=== PATIENT | female | born 1930 | race Caucasian/White ===

== ENCOUNTER 2016-12-11 23:45 | Emergency (ER) | payer MEDICARE, OTHER ==
[2016-12-12] MEDS ORDERED: HYDROcod/ACET 5/325 Prepack 6 PO ONE ×2 (00:09→00:14)
[2016-12-12] MEDS ORDERED: HYDROcod/ACETAM 5/325 MG TABLET PO STA (00:09)
[2016-12-12] MEDS ORDERED: HYDROcod/ACETAM 5/325 MG TABLET ONE (00:14)
[2016-12-12] MEDS ORDERED: HYDROmorphone 1 MG/ML SYRINGE IM STA (00:43)
[2016-12-12] MEDS ORDERED: HYDROmorphone 1 MG/ML SYRINGE ONE (00:44)
== END 2016-12-12 00:43 | disposition home or self-care (01) ==
DX: S46.001A Unspecified injury of muscle(s) and tendon(s) of the rotator cuff of right shoulder, initial encounter (principal); I10 Essential (primary) hypertension; I48.92 Unspecified atrial flutter; E11.9 Type 2 diabetes mellitus without complications; G89.29 Other chronic pain; M54.9 Dorsalgia, unspecified; Z96.659 Presence of unspecified artificial knee joint; Z79.891 Long term (current) use of opiate analgesic; Z79.899 Other long term (current) drug therapy
CPT/HCPCS: 73030; 96372; 99283; 99284; A9270; J1170

== ENCOUNTER 2017-01-28 16:22 | Outpatient (CLI) | payer MEDICARE, OTHER ==
--- NOTE | 2017-01-28 17:24 | CT Report ---
EXAM: CT HEAD EXAM DATE: 01/28/2017 04:44 PM. CLINICAL HISTORY: Acute unsteadiness COMPARISON: Head CT 05/07/2015. TECHNIQUE: Multiaxial CT images were obtained from the foramen magnum to the vertex. IV contrast: Non e. Reformats: Coronal. In accordance with CT protocol optimization, one or more of the following dose reduction techniques w ere utilized for this exam: automated exposure control, adjustment of mA and/or KV based on patient s ize, or use of iterative reconstructive technique. FINDINGS: Parenchyma: No intracranial bleed or mass effect. Moderate low density within the deep white matter. Extraaxial Spaces: Normal for age. No subdural or epidural collections identified. Ventricles: Normal in size and position. Sinuses: Imaged paranasal sinuses, orbits, and mastoids show no significant abnormality. Bones: No evidence of fracture or calvarial defect. Other: Atherosclerosis. IMPRESSION: 1. No intracranial bleed or mass effect. 2. Moderate nonspecific white matter disease, likely microangiopathy. RAD[facility] The call report notification system was initiated by Dr. Kev Crump at 17:13 hrs on 01/28/17. The above findings were discussed with Dr. Cowart by Dr. Kev Crump at 17:20 hrs on 01/28/17. Referring Provider Line: [phone] SITE ID: [id number]
== END 2017-01-28 16:23 | disposition home or self-care (01) ==
LOC: DI 16:22
PROVIDERS: ATTEND Internal Medicine
DX: R26.9 Unspecified abnormalities of gait and mobility (principal); R26.81 Unsteadiness on feet; R90.82 White matter disease, unspecified
CPT/HCPCS: 70450

== ENCOUNTER 2017-05-17 10:10 | Outpatient (CLI) | payer MEDICARE, OTHER ==
[2017-05-17 18:53] LABS: BASOPHILS # (AUTO) 0.1 10^3/uL (0.0-0.1); BASOPHILS % (AUTO) 1.1 %; EOSINOPHILS # (AUTO) 0.1 10^3/uL (0.0-0.7); EOSINOPHILS % (AUTO) 2.4 %; HCT - HEMATOCRIT 41.8 % (37.0-47.0); HGB - HEMOGLOBIN 13.8 g/dL (12.0-16.0); LYMPHOCYTES # (AUTO) 1.3 10^3/uL (1.5-3.5); LYMPHOCYTES % (AUTO) 22.1 %; MEAN CORPUSCULAR HEMOGLOBIN 29.6 pg (27.0-31.0); MEAN CORPUSCULAR VOLUME 89.7 fL (81.0-99.0); MEAN PLATELET VOLUME 8.9 fL (7.9-10.8); MONOCYTES # (AUTO) 0.5 10^3/uL (0.0-1.0); MONOCYTES % (AUTO) 8.9 %; NEUTROPHILS # (AUTO) 3.9 10^3/uL (1.5-6.6); NEUTROPHILS % (AUTO) 65.5 %; NUCLEATED RED BLOOD CELLS AUTO 0.3 /100WBC; RED BLOOD COUNT 4.66 10^6/uL (4.20-5.40); RED CELL DISTRIBUTION WIDTH 15.2 % (12.0-15.0); UNCORRECTED WHITE BLOOD COUNT 5.9 x10^3/uL; WHITE BLOOD COUNT 5.9 x10^3/uL (4.8-10.8)
[2017-05-17 19:19] LABS: ALBUMIN/GLOBULIN RATIO 1.6 (1.0-2.2); BILIRUBIN,TOTAL 0.9 mg/dL (0.2-1.0); BUN - BLOOD UREA NITROGEN 15 mg/dL (6-20); CALCIUM 9.5 mg/dL (8.5-10.3); CARBON DIOXIDE - CO2 28 mmol/L (21-32); CHLORIDE 102 mmol/L (101-111); CHOL/HDL RATIO 4.1 (<4.4); CHOLESTEROL 207 mg/dL; CREATININE 0.6 mg/dL (0.4-1.0); GFR - MDRD 95 (>89); GLUCOSE 115 mg/dL (70-100); HDL CHOLESTEROL 50 mg/dL; LDL/HDL RATIO 2.2 (<4.4); SODIUM 139 mmol/L (135-145); TOTAL PROTEIN 7.2 g/dL (6.7-8.2); TRIGLYCERIDES 237 mg/dL; VLDL CHOLESTEROL 47 mg/dL
[2017-05-17 20:14] LABS: HEMOGLOBIN A1C 0.72 g/dL
== END 2017-05-17 10:11 | disposition home or self-care (01) ==
LOC: LAB.F 10:10
PROVIDERS: ATTEND Internal Medicine
DX: I26.99 Other pulmonary embolism without acute cor pulmonale (principal); E11.9 Type 2 diabetes mellitus without complications; E78.2 Mixed hyperlipidemia; M15.9 Polyosteoarthritis, unspecified; I48.0 Paroxysmal atrial fibrillation; Z79.899 Other long term (current) drug therapy
CPT/HCPCS: 36415; 80053; 80061; 83036; 84443; 85025

== ENCOUNTER 2017-06-22 06:13 | Day surgery (SDC) | payer MEDICARE, OTHER ==
[2017-06-22] MEDS ORDERED: LACTATED RINGERS 1,000 ML IV ONE (07:04)
[2017-06-22] MEDS ORDERED: LIDOCAINE 1%-EPI 1:100000 30 ML MDV SUBQ ONE ×2 (07:41)
[2017-06-22] MEDS ORDERED: BUPIVACAINE 0.25% PF 30 ML VIAL SUBQ ONE ×2 (07:41)
[2017-06-22] MEDS ORDERED: LIDOCAINE-MPF 2% 5 ML VIAL IM ONE (07:45)
[2017-06-22] MEDS ORDERED: fentaNYL 100 MCG/2 ML VIAL IVP ONE (07:45)
[2017-06-22] MEDS ORDERED: MIDAZOLAM 2 MG/2 ML VIAL IVP ONE (07:45)
[2017-06-22] MEDS ORDERED: PROPOFOL 200 MG/20 ML VIAL IVP ONE (07:45)
[2017-06-22 08:24] VITALS: BP 114/72
--- NOTE | 2017-06-22 10:10 | OPERATIVE REPORT ---
DATE OF SURGERY: 06/22/2017 00:00:00 PREOPERATIVE DIAGNOSIS: Right hand carpal tunnel syndrome. POSTOPERATIVE DIAGNOSIS: Right hand carpal tunnel syndrome. PROCEDURE: Right carpal tunnel release. OPERATING SURGEON: Carlos Jean MD ANESTHESIA: Local MAC. INDICATIONS FOR SURGERY: The patient is an 87-year-old female with progressive pain and numbness in h er right hand with positive findings of carpal tunnel syndrome both by clinical exam and nerve conduc tion studies. Recommendation is that she undergo carpal tunnel release. DESCRIPTION OF OPERATIVE PROCEDURE: The patient was taken to the operating room, was given conscious sedation and also an infiltrated block of 1% lidocaine with epinephrine and 0.25% Marcaine plain, sowmya roximately 8 mL total volume. Once this block was achieved in the carpal tunnel, the hand was sterile ly prepped and draped in standard fashion. A 1-1/2-inch incision was made in the palm in line with th e radial border of the ring finger and the incision taken through skin and subcutaneous tissue direct ly down to the transverse carpal ligament. On the ulnar aspect of this ligament, a longitudinal divis ion was made into the carpal tunnel, and then the release was carried proximal and distal to the exte nt that was safe. At the distal extent, to the superficial arch, and at the proximal end, to the dist al wrist flexion crease. The nerve was inspected, was intact, and the contents were unremarkable. The area was irrigated thoroughly and closed with interrupted 4-0 nylon suture. Sterile dressings were a pplied. The patient was taken to the recovery room in stable condition. ESTIMATED BLOOD LOSS: Minimal. COMPLICATIONS: None. SPONGE AND NEEDLE COUNTS: Correct. JOB #: [id number] EXT JOB #:[id number]
== END 2017-06-22 06:14 | disposition home or self-care (01) ==
LOC: SDS 06:13
PROVIDERS: ATTEND Orthopaedic Surgery
PROC: 01N50ZZ Release Median Nerve, Open Approach (ICD-10-PCS; principal; 2017-06-22 07:30)
DX: G56.01 Carpal tunnel syndrome, right upper limb (principal); E11.9 Type 2 diabetes mellitus without complications; I48.0 Paroxysmal atrial fibrillation
CPT/HCPCS: 64721; J7120

== ENCOUNTER 2017-10-05 13:34 | Outpatient (CLI) | payer MEDICARE, OTHER ==
[2017-10-05 17:37] LABS: HB2 TOTAL 13.9 g/dL; HEMOGLOBIN A1C 0.69 g/dL; HEMOGLOBIN A1C % 6.7 % (4.6-6.2)
== END 2017-10-05 13:35 ==
LOC: LAB.R 13:34
PROVIDERS: ATTEND Internal Medicine
DX: E11.9 Type 2 diabetes mellitus without complications (principal)
CPT/HCPCS: 83036

== ENCOUNTER 2017-10-06 08:00 | Outpatient (CLI) | payer MEDICARE, OTHER | END 2017-10-06 08:01 | disposition home or self-care (01) | LOC: LAB.R 08:00 | PROVIDERS: ATTEND Internal Medicine | DX: R05 Cough (principal); E78.2 Mixed hyperlipidemia; I48.0 Paroxysmal atrial fibrillation; I26.99 Other pulmonary embolism without acute cor pulmonale; R06.00 Dyspnea, unspecified | CPT/HCPCS: 83880 ==

== ENCOUNTER 2017-12-01 09:26 | Outpatient (CLI) | payer MEDICARE, OTHER ==
--- NOTE | 2017-12-02 10:07 | Mammography Report ---
DIGITAL SCREENING MAMMOGRAM: 12/01/2017 HISTORY: Family history of breast cancer for screening. TECHNIQUE: Bilateral digital CC and MLO projections. FINDINGS: The breast tissue is heterogeneously dense. Stable post-surgical change left breast. Scattered benign-appearing calcifications are present in both breasts. No suspicious clustered microcalcifications, new architectural distortion, dominant mass, skin thickening or obvious interval change. IMPRESSION: BENIGN - BI-RADS CATEGORY 2. SUGGEST RETURN TO ROUTINE SCREENING IN 12 MONTHS. STANDARD QUALIFYING STATEMENTS: 1. This examination was reviewed with the aid of Computer-Aided Detection (CAD). 2. A negative or benign imaging report should not delay biopsy if clinically suspicious findings are present. Consider surgical consultation if warranted. More than 5% of cancers are not identified by imaging. 3. Dense breasts may obscure an underlying neoplasm. TD: 12/02/2017 10:06
== END 2017-12-01 09:27 | disposition home or self-care (01) ==
LOC: DI 09:26
PROVIDERS: ATTEND Internal Medicine
DX: Z12.31 Encounter for screening mammogram for malignant neoplasm of breast (principal); Z80.3 Family history of malignant neoplasm of breast
CPT/HCPCS: 77067

== ENCOUNTER 2018-02-17 08:00 | Outpatient (CLI) | payer MEDICARE, OTHER ==
[2018-02-17 15:37] LABS: HB2 TOTAL 14.7 g/dL; HEMOGLOBIN A1C 0.72 g/dL; HEMOGLOBIN A1C % 6.6 % (4.6-6.2)
== END 2018-02-17 08:01 | disposition home or self-care (01) ==
LOC: LAB.R 08:00
PROVIDERS: ATTEND Internal Medicine
DX: E11.9 Type 2 diabetes mellitus without complications (principal)
CPT/HCPCS: 83036

== ENCOUNTER 2018-06-02 08:23 | Outpatient (CLI) | payer MEDICARE, OTHER ==
[2018-06-02 14:12] LABS: BASOPHILS # (AUTO) 0.1 10^3/uL (0.0-0.1); BASOPHILS % (AUTO) 0.9 %; EOSINOPHILS # (AUTO) 0.1 10^3/uL (0.0-0.7); EOSINOPHILS % (AUTO) 2.2 %; LYMPHOCYTES # (AUTO) 1.5 10^3/uL (1.5-3.5); LYMPHOCYTES % (AUTO) 24.1 %; MEAN CORPUSCULAR HEMOGLOBIN 29.6 pg (27.0-31.0); MEAN CORPUSCULAR HGB CONC 33.2 g/dL (32.0-36.0); MEAN PLATELET VOLUME 8.7 fL (7.9-10.8); MONOCYTES # (AUTO) 0.5 10^3/uL (0.0-1.0); MONOCYTES % (AUTO) 8.2 %; NEUTROPHILS # (AUTO) 3.9 10^3/uL (1.5-6.6); NEUTROPHILS % (AUTO) 64.6 %; PLT - PLATELET COUNT 256 10^3/uL (130-450); RED BLOOD COUNT 5.07 10^6/uL (4.20-5.40); RED CELL DISTRIBUTION WIDTH 14.1 % (12.0-15.0); WHITE BLOOD COUNT 6.1 x10^3/uL (4.8-10.8)
[2018-06-02 14:40] LABS: ALBUMIN 4.1 g/dL (3.2-5.5); ALBUMIN/GLOBULIN RATIO 1.4 (1.0-2.2); ALKALINE PHOSPHATASE 79 IU/L (42-121); ALT ALANINE AMINOTRANSFERASE 20 IU/L (10-60); BILIRUBIN,TOTAL 0.7 mg/dL (0.2-1.0); BUN - BLOOD UREA NITROGEN 18 mg/dL (6-20); CALCIUM 9.6 mg/dL (8.5-10.3); CARBON DIOXIDE - CO2 28 mmol/L (21-32); CHLORIDE 102 mmol/L (101-111); CHOL/HDL RATIO 4.4 (<4.4); CHOLESTEROL 203 mg/dL; CREATININE 0.8 mg/dL (0.4-1.0); GFR - MDRD 68 (>89); GLUCOSE 117 mg/dL (70-100); HDL CHOLESTEROL 46 mg/dL; LDL CHOLESTEROL,CALCULATED 98 mg/dL; LDL/HDL RATIO 2.1 (<4.4); SODIUM 140 mmol/L (135-145); TOTAL PROTEIN 7.1 g/dL (6.7-8.2); VLDL CHOLESTEROL 59 mg/dL
[2018-06-02 14:41] LABS: HB2 TOTAL 16.1 g/dL; HEMOGLOBIN A1C 0.78 g/dL; HEMOGLOBIN A1C % 6.6 % (4.6-6.2)
[2018-06-02 21:58] LABS: AST ASPARTATE AMINOTRANSFERASE 21 IU/L (10-42)
== END 2018-06-02 08:24 | disposition home or self-care (01) ==
LOC: LAB.R 08:23
PROVIDERS: ATTEND Internal Medicine
DX: I26.99 Other pulmonary embolism without acute cor pulmonale (principal); R41.3 Other amnesia; E11.9 Type 2 diabetes mellitus without complications; I48.0 Paroxysmal atrial fibrillation; E78.2 Mixed hyperlipidemia
CPT/HCPCS: 80053; 80061; 83036; 83721; 84443; 85025

== ENCOUNTER 2018-10-07 10:35 | Outpatient (CLI) | payer MEDICARE, OTHER ==
[2018-10-07 17:03] LABS: HB2 TOTAL 14.9 g/dL; HEMOGLOBIN A1C 0.71 g/dL; HEMOGLOBIN A1C % 6.5 % (4.6-6.2)
== END 2018-10-07 10:36 | disposition home or self-care (01) ==
LOC: LAB.F 10:35
PROVIDERS: ATTEND Internal Medicine
DX: E11.9 Type 2 diabetes mellitus without complications (principal)
CPT/HCPCS: 36415; 83036

== ENCOUNTER 2018-12-19 10:07 | Emergency (ER) | payer MEDICARE, OTHER ==
--- NOTE | 2018-12-19 11:31 | ED Physician Documentation ---
PD HPI LOWER EXT INJURY - Stated complaint Stated Complaint: L BIG TOE PX - Chief complaint Chief Complaint: Ext Problem - History obtained from History obtained from: Patient - History of Present Illness PD HPI LOW EXT INJURY LOCATION: Left, Toe (great toe) Type of injury: Blunt / blow Where injury occurred: Home Timing - onset: How many days ago (2) Timing - duration: Days (2) Timing - details: Abrupt onset Pain level max: 0 Pain level now: 0 Improved by: Rest Worsened by: Moving Associated symptoms: Swelling, Discolored. No: Weakness, Numbness, Tingling Contributing factors: Anticoagulated (xarelto) - Additional information Additional information: has neuropathy and no feeling in the toe. 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, Hysterectomy, Oophrectomy HEENT: Cataracts, Detached retina repair - Present Medications Home Medications: Ambulatory Orders Medication Instructions Recorded Confirmed Digoxin [Lanoxin] 250 mcg PO DAILY 09/23/13 06/22/17 Metformin HCl [Metformin HCl ER] 500 mg PO DAILY 09/23/13 06/22/17 Multivitamin [Multi-Vitamin Daily] 1 each PO DAILY 09/23/13 06/22/17 Citalopram [CeleXA] 20 mg PO DAILY 02/10/14 06/22/17 Pravastatin Sodium 20 mg PO DAILY 07/02/14 06/22/17 Triamterene/Hydrochlorothiazid 1 tab PO DAILY 07/02/14 06/22/17 [Triamterene-Hctz 37.5-25 mg Cp] Acetaminophen 500 mg PO Q8HR 12/12/16 06/22/17 Donepezil HCl 5 mg PO BID 12/12/16 06/22/17 Gabapentin 200 mg PO DAILY PM PRN 12/12/16 06/22/17 Rivaroxaban [Xarelto] 20 mg PO DAILY 12/12/16 06/22/17 Cephalexin [Keflex] 500 mg PO Q6H #28 capsule 12/19/18 - Allergies Allergies/Adverse Reactions: Allergies Allergy/AdvReac Type Severity Reaction Status Date / Time codeine Allergy Itching Verified 12/19/18 10:12 - Social History Does the pt smoke?: No Smoking Status: Never smoker Does the pt drink ETOH?: Yes Does the pt have substance abuse?: No - Immunizations Immunizations are current?: Yes - POLST Patient has POLST: No PD ED PE NORMAL - Vitals Vital signs reviewed: Yes - General General: Alert and oriented X 3 - Extremities Extremities: Other (L great toe - Ecchymosis, swelling to the great toe. Does not have any feeling here, this is baseline. There is brisk cap refill. There is also a large blood-filled blister over the toe. There is no nail injury.) - Neuro Neuro: Alert and oriented X 3 Results - Vitals Vitals: Vital Signs - 24 hr 12/19/18 12/19/18 10:11 12:50 Temperature 36.4 C L Heart Rate 73 78 Respiratory 18 18 Rate Blood Pressure 147/69 H 140/78 H O2 Saturation 97 99 Oxygen O2 Source [With Activity] Room air O2 Source [Without Activity] Room air O2 Source Room air - Rads (name of study) Left great toe x-ray Radiology: Prelim report reviewed, EMP read contemporaneously, See rad report (Fracture of the medial aspect of the distal phalanx with intra-articular extension) PD MEDICAL DECISION MAKING - ED course Complexity details: reviewed results, re-evaluated patient, considered differential, d/w patient ED course: 88-year-old female with left great toe fracture. There was a large hemorrhagic vesicle, this was unroofed and drained. She was placed in a soft nonocclusive dressing around the toe. Bleeding controlled. Bacitracin also applied as well as Gelfoam. She will remove all this tomorrow. Tetanus is up-to-date. Patient counseled regarding signs and symptoms for which I believe and urgent re- evaluation would be necessary. Patient with good understanding of and agreement to plan and is comfortable going home at this time This document was made in part using voice recognition software. While efforts are made to proofread this document, sound alike and grammatical errors may occur. Departure - Departure Disposition: 01 Home, Self Care Clinical Impression: Fracture of great toe, left, closed Qualifiers: Encounter type: initial encounter Phalanx: distal Fracture alignment: nondisplaced Qualified Code(s): S92.425A - Nondisplaced fracture of distal phalanx of left great toe, initial encounter for closed fracture Condition: Good Instructions: ED Fx Toe Closed Follow-Up: Vincent Borges MD [Primary Care Provider] - Within 1 week Prescriptions: Cephalexin [Keflex] 500 mg PO Q6H #28 capsule Comments: Return if you worsen. Follow-up with your doctor within 1 week for wound check. Remove the bandage tomorrow. Do not wrap any tight occlusive bandages over the area. Return if you notice redness swelling or drainage from the wound. The fracture should heal without incident. Take all antibiotics until gone Discharge Date/Time: 12/19/18 12:50
--- NOTE | 2018-12-19 12:13 | XRAY Report ---
Reason: great toe stub, bleeding, swollen Procedure Date: 12/19/2018 Accession Number: [id number] / [id number] Procedure: XR - Toe(s) LT CPT Code: FULL RESULT: EXAM: LEFT TOE RADIOGRAPHY EXAM DATE: 12/19/2018 11:40 AM. CLINICAL HISTORY: Great toe stub, bleeding, swollen. COMPARISON: XR FOOT COMPLETE MIN 3 VIEWS 05/06/2011 8:53 AM. TECHNIQUE: 3 views. FINDINGS: Bones: There is a fracture of the medial aspect of the distal phalanx with intra-articular extension. Joints: Normal. No subluxations. Soft Tissues: Normal. No soft tissue swelling. IMPRESSION: Toe fracture as described. Recommendation: Given intra-articular extension and the described location of the blood blister, consider treatment as open fracture per definition of nail bed involvement if indicated. [facility]
[2018-12-19 12:50] VITALS: BP 140/78
== END 2018-12-19 12:50 | disposition home or self-care (01) ==
LOC: ED 10:07
DX: S92.425A Nondisplaced fracture of distal phalanx of left great toe, initial encounter for closed fracture (principal); X58.XXXA Exposure to other specified factors, initial encounter; Y92.009 Unspecified place in unspecified non-institutional (private) residence as the place of occurrence of the external cause; I10 Essential (primary) hypertension; E11.40 Type 2 diabetes mellitus with diabetic neuropathy, unspecified; Z79.84 Long term (current) use of oral hypoglycemic drugs
CPT/HCPCS: 73660; 99283

== ENCOUNTER 2019-01-20 11:54 | Outpatient (CLI) | payer MEDICARE, OTHER | END 2019-01-20 11:55 | disposition critical access hospital (66) | LOC: EMS 11:54 | PROVIDERS: ATTEND Surgery | DX: R73.09 Other abnormal glucose (principal); R03.1 Nonspecific low blood-pressure reading; R42 Dizziness and giddiness | CPT/HCPCS: A0425; A0427 ==

== ENCOUNTER 2019-01-20 12:15 | Emergency (ER) | payer MEDICARE, OTHER ==
--- NOTE | 2019-01-20 13:23 | ED Physician Documentation ---
PD HPI ALTERED MENTAL STATUS - Stated complaint Stated Complaint: HIGH BLOOD SUGAR - Chief complaint Chief Complaint: General - History obtained from History obtained from: Patient, EMS - History of Present Illness Timing - onset: How many days ago (4 days ago, her went into the hospital at and the patient neglected to take her meds or eat well for those days. Noted her blood sugar was high today, so did take her Metformin this morning. She was feeling weak and tired. Family encouraged her to come here for evaluation.) Timing - duration: Days Timing - details: Gradual onset, Still present Quality / character: Other (general weakness) Associated symptoms: General weakness. No: Fever, Headache, Stiff neck, Dyspnea, Cough, NVD Contributing factors: Diabetic. No: New medication, Recent illness Basline status: Alert and oriented X 3, Ambulatory Similar symptoms before: Has not had sx before Review of Systems Constitutional: denies: Fever, Chills Nose: denies: Rhinorrhea / runny nose, Congestion Throat: denies: Sore throat Respiratory: denies: Cough GI: denies: Abdominal Pain, Nausea, Vomiting Neurologic: reports: Generalized weakness. denies: Focal weakness, Numbness, Headache PD PAST MEDICAL HISTORY - Past Medical History Past Medical History: Yes Cardiovascular: Hypertension, High cholesterol, Pulmonary embolism, Atrial flutter, Arrhythmia Respiratory: None Endocrine/Autoimmune: Type 2 diabetes GI: None GIRL FRIDAY: None : Frequency HEENT: Dental implants, Other Psych: Depression Musculoskeletal: Chronic back pain Derm: Rosacea - Past Surgical History Past Surgical History: Yes General: Colonoscopy Ortho: Knee replacement, Spine surgery /GIRL FRIDAY: section, Hysterectomy, Oophrectomy HEENT: Cataracts, Detached retina repair - Present Medications Home Medications: Ambulatory Orders Medication Instructions Recorded Confirmed Digoxin [Lanoxin] 250 mcg PO DAILY 09/23/13 06/22/17 Metformin HCl [Metformin HCl ER] 500 mg PO DAILY 09/23/13 06/22/17 Multivitamin [Multi-Vitamin Daily] 1 each PO DAILY 09/23/13 06/22/17 Citalopram [CeleXA] 20 mg PO DAILY 02/10/14 06/22/17 Pravastatin Sodium 20 mg PO DAILY 07/02/14 06/22/17 Triamterene/Hydrochlorothiazid 1 tab PO DAILY 07/02/14 06/22/17 [Triamterene-Hctz 37.5-25 mg Cp] Acetaminophen 500 mg PO Q8HR 12/12/16 06/22/17 Donepezil HCl 5 mg PO BID 12/12/16 06/22/17 Gabapentin 200 mg PO DAILY PM PRN 12/12/16 06/22/17 Rivaroxaban [Xarelto] 20 mg PO DAILY 12/12/16 06/22/17 Cephalexin [Keflex] 500 mg PO Q6H #28 capsule 12/19/18 Cephalexin [Keflex] 500 mg PO TID #21 capsule 01/20/19 Diphenoxylate/Atropine [Lomotil] 1 each PO QID PRN #12 tablet 01/20/19 - Allergies Allergies/Adverse Reactions: Allergies Allergy/AdvReac Type Severity Reaction Status Date / Time codeine Allergy Itching Verified 01/20/19 12:28 - Social History Does the pt smoke?: No Smoking Status: Never smoker Does the pt drink ETOH?: Yes Does the pt have substance abuse?: No - Immunizations Immunizations are current?: Yes - POLST Patient has POLST: No PD ED PE NORMAL - Vitals Vital signs reviewed: Yes - General General: Alert and oriented X 3, No acute distress, Well developed/nourished - HEENT HEENT: Pharynx benign - Neck Neck: Supple, no meningeal sign, No adenopathy - Cardiac Cardiac: RRR, No murmur - Respiratory Respiratory: Clear bilaterally - Abdomen Abdomen: Soft, Non tender - Back Back: No CVA TTP - Derm Derm: Normal color, Warm and dry - Extremities Extremities: No edema, No calf tenderness / cord - Neuro Neuro: Alert and oriented X 3, No motor deficit, Normal speech Results - Vitals Vitals: Oxygen O2 Source [With Activity] Room air O2 Source [Without Activity] Room air O2 Source Room air - Labs Labs: Microbiology 01/20/19 14:20 Urine Culture - Preliminary Urine,Random Escherichia Coli Laboratory Tests 01/20/19 01/20/19 01/20/19 12:33 14:03 14:03 WBC 9.8 RBC 4.97 Hgb 14.3 Hct 43.7 MCV 87.9 MCH 28.8 MCHC 32.7 RDW 14.3 Plt Count 269 MPV 8.5 Neut # (Auto) 7.4 H Lymph # (Auto) 1.0 L [place] # (Auto) 1.3 H Eos # (Auto) 0.1 Baso # (Auto) 0.0 Absolute Nucleated RBC 0.01 Nucleated RBC % 0.1 Sodium 135 Potassium 3.8 Chloride 97 L Carbon Dioxide 25 Anion Gap 13.0 BUN 33 H Creatinine 1.3 H Estimated GFR (MDRD) 39 L Glucose 168 H POC Whole Bld Glucose 192 H Calcium 9.1 Magnesium 1.7 Total Bilirubin 0.7 AST 26 ALT 21 Alkaline Phosphatase 81 Troponin I B-Natriuretic Peptide Total Protein 7.7 Albumin 3.8 Globulin 3.9 Albumin/Globulin Ratio 1.0 Lipase 30 Urine Color Urine Clarity Urine pH Ur Specific [place] Urine Protein Urine Glucose (UA) Urine Ketones Urine Occult Blood Urine Nitrite Urine Bilirubin Urine Urobilinogen Ur Leukocyte Esterase Urine RBC Urine WBC Ur Squamous Epith Cells Urine Bacteria Ur Microscopic Review Urine Culture Comments Last Dose Date Last Dose Time Digoxin Serum Ketones NEGATIVE 01/20/19 01/20/19 01/20/19 14:03 14:03 14:03 WBC RBC Hgb Hct MCV MCH MCHC RDW Plt Count MPV Neut # (Auto) Lymph # (Auto) [place] # (Auto) Eos # (Auto) Baso # (Auto) Absolute Nucleated RBC Nucleated RBC % Sodium Potassium Chloride Carbon Dioxide Anion Gap BUN Creatinine Estimated GFR (MDRD) Glucose POC Whole Bld Glucose Calcium Magnesium Total Bilirubin AST ALT Alkaline Phosphatase Troponin I < 0.04 B-Natriuretic Peptide 352 H Total Protein Albumin Globulin Albumin/Globulin Ratio Lipase Urine Color Urine Clarity Urine pH Ur Specific [place] Urine Protein Urine Glucose (UA) Urine Ketones Urine Occult Blood Urine Nitrite Urine Bilirubin Urine Urobilinogen Ur Leukocyte Esterase Urine RBC Urine WBC Ur Squamous Epith Cells Urine Bacteria Ur Microscopic Review Urine Culture Comments Last Dose Date UNKNOWN Last Dose Time UNKNOWN Digoxin 1.0 Serum Ketones 01/20/19 01/20/19 14:20 16:57 WBC RBC Hgb Hct MCV MCH MCHC RDW Plt Count MPV Neut # (Auto) Lymph # (Auto) [place] # (Auto) Eos # (Auto) Baso # (Auto) Absolute Nucleated RBC Nucleated RBC % Sodium Potassium Chloride Carbon Dioxide Anion Gap BUN Creatinine Estimated GFR (MDRD) Glucose POC Whole Bld Glucose 146 H Calcium Magnesium Total Bilirubin AST ALT Alkaline Phosphatase Troponin I B-Natriuretic Peptide Total Protein Albumin Globulin Albumin/Globulin Ratio Lipase Urine Color YELLOW Urine Clarity CLOUDY Urine pH 5.5 Ur Specific [place] 1.025 Urine Protein 100 H Urine Glucose (UA) NEGATIVE Urine Ketones TRACE Urine Occult Blood MODERATE H Urine Nitrite NEGATIVE Urine Bilirubin NEGATIVE Urine Urobilinogen 1 (NORMAL) Ur Leukocyte Esterase LARGE H Urine RBC 6-10 H Urine WBC >25 H Ur Squamous Epith Cells FEW Squamous Urine Bacteria Many H Ur Microscopic Review INDICATED Urine Culture Comments INDICATED Last Dose Date Last Dose Time Digoxin Serum Ketones PD MEDICAL DECISION MAKING - ED course Complexity details: reviewed results, considered differential (initially low BP presumed due to underhydration. It improved with IV fluids. Her blood sugar improved with just time and fluids. She is going to resume her usual meds and food tomorrow. ), d/w patient Departure - Departure Disposition: Home, Self Care Clinical Impression: Weakness, Hyperglycemia, Dehydration, Transient hypotension UTI (urinary tract infection) Qualifiers: Urinary tract infection type: acute cystitis Hematuria presence: without hematuria Qualified Code(s): N30.00 - Acute cystitis without hematuria Diarrhea Qualifiers: Diarrhea type: unspecified type Qualified Code(s): R19.7 - Diarrhea, unspecified Condition: Stable Record reviewed to determine appropriate education?: Yes Instructions: ED UTI Cystitis Female Prescriptions: Cephalexin [Keflex] 500 mg PO TID #21 capsule Diphenoxylate/Atropine [Lomotil] 1 each PO QID PRN #12 tablet PRN Reason: Diarrhea Comments: Your blood sugar was improving here with some fluids and presumably the metformin you took earlier. Resume usual medications overall. Eat and drink well. The diarrhea you have developed here may be from all the foot UAD and. See if that passes and the next day or so and you can use some Lomotil if needed for the diarrhea. You do have a bladder infection by lab testing and take the cephalexin for a week as directed. Follow-up with your primary care next week. Return if not improved over the next few days. Discharge Date/Time: 01/20/19 17:49
[2019-01-20] MEDS ORDERED: SODIUM CHLORIDE 0.9% 1,000 ML IV ONE ×2 (13:51→15:44)
[2019-01-20 14:19] LABS: BASOPHILS % (AUTO) 0.3 %; EOSINOPHILS # (AUTO) 0.1 10^3/uL (0.0-0.7); EOSINOPHILS % (AUTO) 0.5 %; HGB - HEMOGLOBIN 14.3 g/dL (12.0-16.0); LYMPHOCYTES % (AUTO) 10.7 %; MEAN CORPUSCULAR HEMOGLOBIN 28.8 pg (27.0-31.0); MEAN CORPUSCULAR HGB CONC 32.7 g/dL (32.0-36.0); MEAN CORPUSCULAR VOLUME 87.9 fL (81.0-99.0); MEAN PLATELET VOLUME 8.5 fL (7.9-10.8); MONOCYTES # (AUTO) 1.3 10^3/uL (0.0-1.0); MONOCYTES % (AUTO) 12.9 %; NEUTROPHILS # (AUTO) 7.4 10^3/uL (1.5-6.6); NEUTROPHILS % (AUTO) 75.6 %; PLT - PLATELET COUNT 269 10^3/uL (130-450); RED BLOOD COUNT 4.97 10^6/uL (4.20-5.40); RED CELL DISTRIBUTION WIDTH 14.3 % (12.0-15.0); WHITE BLOOD COUNT 9.8 x10^3/uL (4.8-10.8)
[2019-01-20 14:28] LABS: KETONES, SERUM (ACETEST) NEGATIVE (NEGATIVE)
[2019-01-20 14:33] LABS: ALBUMIN 3.8 g/dL (3.2-5.5); ALKALINE PHOSPHATASE 81 IU/L (42-121); ALT ALANINE AMINOTRANSFERASE 21 IU/L (10-60); AST ASPARTATE AMINOTRANSFERASE 26 IU/L (10-42); BILIRUBIN,TOTAL 0.7 mg/dL (0.2-1.0); BUN - BLOOD UREA NITROGEN 33 mg/dL (6-20); CALCIUM 9.1 mg/dL (8.5-10.3); CARBON DIOXIDE - CO2 25 mmol/L (21-32); CHLORIDE 97 mmol/L (101-111); CREATININE 1.3 mg/dL (0.4-1.0); GFR - MDRD 39 (>89); GLUCOSE 168 mg/dL (70-100); LIPASE 30 U/L (22-51); MAGNESIUM 1.7 mg/dL (1.7-2.8); SODIUM 135 mmol/L (135-145); TOTAL PROTEIN 7.7 g/dL (6.7-8.2)
[2019-01-20 15:10] LABS: GLUCOSE, URINE (UA) NEGATIVE (NEGATIVE); KETONES,URINE (UA) TRACE mg/dL (NEGATIVE); LEUKOCYTE ESTERASE, URINE LARGE (NEGATIVE); NITRITE,URINE NEGATIVE (NEGATIVE); OCCULT BLOOD,URINE MODERATE (NEGATIVE); PH,URINE 5.5 PH (5.0-7.5); PROTEIN,URINE 100 mg/dL (NEGATIVE); UROBILINOGEN,URINE 1 (NORMAL) E.U./dL (NORMAL)
[2019-01-20 15:22] LABS: BILIRUBIN,URINE NEGATIVE (NEGATIVE); CLARITY,URINE CLOUDY (CLEAR); ICTOTEST,URINE NEGATIVE
[2019-01-20 15:25] LABS: BACTERIA,URINE Many /HPF (None Seen); SQUAMOUS EPITHELIAL CELL,UR FEW Squamous (<= Few)
[2019-01-20] MEDS ORDERED: cephALEXin 250 MG CAPSULE PO STA (15:32)
[2019-01-20] MEDS ORDERED: cefTRIAXone 1 GM VIAL IVP STA (15:44)
[2019-01-20] MEDS ORDERED: DIPHENOX/ATROPINE 2.5/0.025 MG TABLET PO STA (16:33)
[2019-01-20 17:50] VITALS: BP 110/53
== END 2019-01-20 17:49 | disposition home or self-care (01) ==
LOC: ED 12:15
DX: E11.65 Type 2 diabetes mellitus with hyperglycemia (principal); Z79.84 Long term (current) use of oral hypoglycemic drugs; E86.0 Dehydration; N30.00 Acute cystitis without hematuria; R53.1 Weakness; I95.9 Hypotension, unspecified; R19.7 Diarrhea, unspecified; I10 Essential (primary) hypertension; I48.91 Unspecified atrial fibrillation; Z86.711 Personal history of pulmonary embolism; Z79.01 Long term (current) use of anticoagulants
CPT/HCPCS: 36415; 80053; 80162; 81001; 82009; 83690; 83735; 83880; 84484; 85025; 87086; 87181; 93005; 96361; 96374; 99283; 99284; A9270; 81003

== ENCOUNTER 2019-05-10 08:53 | Outpatient (CLI) | payer MEDICARE, OTHER ==
[2019-05-10 09:26] LABS: ALBUMIN 4.3 g/dL (3.2-5.5); BILIRUBIN,TOTAL 0.9 mg/dL (0.2-1.0); CALCIUM 10.1 mg/dL (8.5-10.3); CREATININE 0.7 mg/dL (0.4-1.0); TOTAL PROTEIN 7.5 g/dL (6.7-8.2)
[2019-05-10 09:27] LABS: ALBUMIN/GLOBULIN RATIO 1.3 (1.0-2.2)
[2019-05-10 09:51] LABS: HB2 TOTAL 13.9 g/dL; HEMOGLOBIN A1C 0.68 g/dL; HEMOGLOBIN A1C % 6.6 % (4.6-6.2)
== END 2019-05-10 08:54 | disposition home or self-care (01) ==
LOC: LAB 08:53
PROVIDERS: ATTEND Nurse Practitioner
DX: E11.9 Type 2 diabetes mellitus without complications (principal); I50.9 Heart failure, unspecified; R41.3 Other amnesia
CPT/HCPCS: 36415; 80053; 83036

== ENCOUNTER 2019-05-10 19:06 | Outpatient (CLI) | payer MEDICARE, OTHER | END 2019-05-10 19:07 | disposition critical access hospital (66) | LOC: EMS 19:06 | PROVIDERS: ATTEND Surgery | DX: R51 Headache (principal); R11.0 Nausea | CPT/HCPCS: A0425; A0429 ==

== ENCOUNTER 2019-05-10 19:20 | Emergency (ER) | payer MEDICARE, OTHER ==
[2019-05-10] MEDS ORDERED: fentaNYL 100 MCG/2 ML VIAL IVP STA (19:39)
[2019-05-10 19:52] LABS: BASOPHILS % (AUTO) 0.6 %; EOSINOPHILS # (AUTO) 0.1 10^3/uL (0.0-0.7); EOSINOPHILS % (AUTO) 1.5 %; HGB - HEMOGLOBIN 13.7 g/dL (12.0-16.0); LYMPHOCYTES # (AUTO) 1.2 10^3/uL (1.5-3.5); LYMPHOCYTES % (AUTO) 18.4 %; MEAN CORPUSCULAR HEMOGLOBIN 28.2 pg (27.0-31.0); MEAN CORPUSCULAR HGB CONC 32.5 g/dL (32.0-36.0); MEAN CORPUSCULAR VOLUME 86.6 fL (81.0-99.0); MEAN PLATELET VOLUME 10.1 fL (7.9-10.8); MONOCYTES # (AUTO) 0.6 10^3/uL (0.0-1.0); MONOCYTES % (AUTO) 9.2 %; NEUTROPHILS # (AUTO) 4.7 10^3/uL (1.5-6.6); NEUTROPHILS % (AUTO) 69.9 %; PLT - PLATELET COUNT 238 10^3/uL (130-450); RED BLOOD COUNT 4.86 10^6/uL (4.20-5.40); RED CELL DISTRIBUTION WIDTH 14.9 % (12.0-15.0); WHITE BLOOD COUNT 6.7 x10^3/uL (4.8-10.8)
[2019-05-10 19:55] LABS: INR 1.1 (0.8-1.2); PT - PROTHROMBIN TIME 12.7 secs (9.9-12.6)
--- NOTE | 2019-05-10 20:00 | ED Physician Documentation ---
PD HPI HEADACHE - Stated complaint Stated Complaint: WARD/NAUSEA - Chief complaint Chief Complaint: Heent - History obtained from History obtained from: Patient - History of Present Illness Timing - onset: How many hours ago (Onset in the last couple of hours of a frontal headache associated with nausea and vomiting and some light sensitivity. She did not have any injury. She has not had any fevers. She has a remote history of migraines when she was younger but not more recently. She is due to have hand surgery in 6 days and so had stopped her Xarelto 2 days ago at the direction of her surgeon. She has had some nasal congestion but no fevers sore throat or coughing. She denies any focal weaknesses or deficits or any loss of vision.) Timing - onset during: Light activity Timing - details: Abrupt onset, Still present Worst headache ever?: No: Worst headache ever? (She states is comparable in character and intensity to migraine she had had when she was younger.) Location: Front, Right Quality: Throbbing, Aching Associated symptoms: Nausea, Vomiting. No: Fever, Stiff neck, Weakness, Numbness, Vision changes (but is light sensitive.) Improved by: No: Meds (tried Tylenol without improvement) Worsened by: Light Contributing factors: No: Anticoagulated (had stopped her Xarelto 2 days ago in prep for sugery on hand), Hypertension, Recent illness, Trauma Similar symptoms before: Diagnosis (migraines when younger) Review of Systems Constitutional: denies: Fever, Myalgias Eyes: reports: Photophobia. denies: Loss of vision, Decreased vision Nose: reports: Congestion, Sinus pressure / pain. denies: Rhinorrhea / runny nose Throat: denies: Sore throat Respiratory: denies: Cough GI: reports: Nausea. denies: Abdominal Pain, Diarrhea : denies: Dysuria, Frequency Skin: denies: Rash Neurologic: reports: Headache. denies: Focal weakness, Numbness, Near syncope, Altered mental status, Head injury, LOC PD PAST MEDICAL HISTORY - Past Medical History Past Medical History: Yes Cardiovascular: Hypertension, High cholesterol, Pulmonary embolism, Atrial fibrillation, Arrhythmia Respiratory: None Neuro: None Endocrine/Autoimmune: Type 2 diabetes GI: None BEVELLER OPERATOR: None : Incontinence, Frequency HEENT: Chronic vision loss, Chronic hearing loss, Dental implants, Other Psych: Depression Musculoskeletal: Osteoarthritis, Chronic back pain Derm: Rosacea, Other - Past Surgical History Past Surgical History: Yes General: Colonoscopy Ortho: Knee replacement, Spine surgery /BEVELLER OPERATOR: section, Hysterectomy, Oophrectomy HEENT: Cataracts, Detached retina repair - Present Medications Home Medications: Ambulatory Orders Medication Instructions Recorded Confirmed Digoxin [Lanoxin] 250 mcg PO DAILY 09/23/13 05/04/19 Metformin HCl [Metformin HCl ER] 500 mg PO DAILY 09/23/13 05/04/19 Multivitamin [Multi-Vitamin Daily] 1 each PO DAILY 09/23/13 05/04/19 Citalopram [CeleXA] 10 mg PO DAILY 02/10/14 05/04/19 Pravastatin Sodium 20 mg PO DAILY 07/02/14 05/04/19 Triamterene/Hydrochlorothiazid 1 tab PO DAILY 07/02/14 05/04/19 [Triamterene-Hctz 37.5-25 mg Cp] Acetaminophen 500 mg PO Q8HR 12/12/16 05/04/19 Donepezil HCl 5 mg PO DAILY 12/12/16 05/04/19 Rivaroxaban [Xarelto] 20 mg PO DAILY 12/12/16 05/04/19 Acetaminophen/Diphenhydramine 1 each PO QPM PRN 05/04/19 05/04/19 [Tylenol Pm Ex-Strength Caplet] Cyanocobalamin (Vitamin B-12) 6,000 mcg PO DAILY 05/04/19 05/04/19 [Vitamin B-12] Hydrocodone/Acetaminophen 1 each PO Q6H PRN #14 tablet 05/10/19 [Hydrocodon-Acetaminophen 5-325] Ondansetron Odt [Zofran] 4 mg TL Q6H PRN #10 tablet 05/10/19 - Allergies Allergies/Adverse Reactions: Allergies Allergy/AdvReac Type Severity Reaction Status Date / Time codeine Allergy Itching, Verified 05/10/19 19:31 nausea kiwi Allergy Anaphylaxis Verified 05/10/19 19:31 - Social History Does the pt smoke?: No Smoking Status: Never smoker Does the pt drink ETOH?: Yes Does the pt have substance abuse?: No - Immunizations Immunizations are current?: Yes - POLST Patient has POLST: No PD ED PE NORMAL - Vitals Vital signs reviewed: Yes - General General: Alert and oriented X 3, Well developed/nourished, Other (Appears uncomfortable and does have light sensitivity.) - HEENT HEENT: Atraumatic, Pharynx benign - Neck Neck: Supple, no meningeal sign, No adenopathy - Cardiac Cardiac: RRR, No murmur - Respiratory Respiratory: Clear bilaterally - Abdomen Abdomen: Soft, Non tender - Back Back: No CVA TTP - Derm Derm: Normal color, Warm and dry - Neuro Neuro: Alert and oriented X 3, trust administrator 2-12 intact, No motor deficit, No sensory deficit, Normal speech, Other Eye Opening: Spontaneous Motor: Obeys Commands Verbal: Oriented GCS Score: 15 - Psych Psych: Normal mood, Normal affect Results - Vitals Vitals: Vital Signs - 24 hr 05/10/19 05/10/19 05/10/19 19:27 19:34 19:36 Temperature 36.5 C Heart Rate 69 66 63 Respiratory 18 17 20 Rate Blood Pressure 150/85 H 142/85 H O2 Saturation 100 100 100 05/10/19 05/10/19 05/10/19 19:52 20:34 20:44 Temperature Heart Rate 69 63 59 L Respiratory 20 20 15 Rate Blood Pressure 147/83 H O2 Saturation 98 99 95 05/10/19 05/10/19 05/10/19 21:04 21:08 21:34 Temperature Heart Rate 68 65 65 Respiratory 14 14 18 Rate Blood Pressure 132/72 H 105/57 L O2 Saturation 94 95 98 05/10/19 22:07 Temperature Heart Rate 73 Respiratory 21 Rate Blood Pressure 107/57 L O2 Saturation 96 Oxygen O2 Source [With Activity] Room air O2 Source [Without Activity] Room air O2 Source Room air - Labs Labs: Laboratory Tests 05/10/19 05/10/19 05/10/19 19:40 19:47 19:47 WBC 6.7 RBC 4.86 Hgb 13.7 Hct 42.1 MCV 86.6 MCH 28.2 MCHC 32.5 RDW 14.9 Plt Count 238 MPV 10.1 Neut # (Auto) 4.7 Lymph # (Auto) 1.2 L [place] # (Auto) 0.6 Eos # (Auto) 0.1 Baso # (Auto) 0.0 Absolute Nucleated RBC 0.00 Nucleated RBC % 0.0 PT 12.7 H INR 1.1 Sodium Potassium Chloride Carbon Dioxide Anion Gap BUN Creatinine Estimated GFR (MDRD) Glucose Calcium Magnesium 1.8 Total Bilirubin AST ALT Alkaline Phosphatase Total Protein Albumin Globulin Albumin/Globulin Ratio Lipase Last Dose Date UNK Last Dose Time UNK Digoxin 0.7 05/10/19 19:47 WBC RBC Hgb Hct MCV MCH MCHC RDW Plt Count MPV Neut # (Auto) Lymph # (Auto) [place] # (Auto) Eos # (Auto) Baso # (Auto) Absolute Nucleated RBC Nucleated RBC % PT INR Sodium 137 Potassium 3.8 Chloride 99 L Carbon Dioxide 24 Anion Gap 14.0 H BUN 18 Creatinine 0.6 Estimated GFR (MDRD) 95 Glucose 133 H Calcium 10.1 Magnesium Total Bilirubin 0.6 AST 22 ALT 18 Alkaline Phosphatase 79 Total Protein 7.8 Albumin 4.4 Globulin 3.4 Albumin/Globulin Ratio 1.3 Lipase 30 Last Dose Date Last Dose Time Digoxin - Rads (name of study) head CT with and without Radiology: Prelim report reviewed (no acute process), See rad report PD MEDICAL DECISION MAKING - ED course Complexity details: reviewed results (She is feeling much improved with IV medicines really targeted or used primarily for migraine. Her basic labs and CT scans are normal.), considered differential (She has a headache with nausea and some light sensitivity. She has remote history of migraines when she was younger but had not had any recently. She did not have injury. There is no fever. She has no focal neuro deficits. We will get a CT scan to evaluate for structural processes. Given that she had stopped her Xarelto a couple days ago and now the headache, I would be concerned for thrombotic or embolic phenomena. Such as cavernous or sagittal sinus thrombosis. An abrupt bleed would be fitting for the symptoms as well. Will get CT scan with and without contrast to evaluate for structural as well as vascular processes per), d/w patient Departure - Departure Disposition: 01 Home, Self Care Clinical Impression: Acute headache Qualifiers: Headache type: unspecified Intractability: not intractable Qualified Code(s): R51 - Headache Condition: Stable Record reviewed to determine appropriate education?: Yes Instructions: ED Cephalgia Unspecified Follow-Up: Eufemia Olmstead ARNP, JUNIOR NETWORK ADMINISTRATOR-C [Primary Care Provider] - Prescriptions: Hydrocodone/Acetaminophen [Hydrocodon-Acetaminophen 5-325] 1 each PO Q6H PRN #14 tablet PRN Reason: pain Ondansetron Odt [Zofran] 4 mg TL Q6H PRN #10 tablet PRN Reason: Nausea / Vomiting Comments: Your basic blood tests and your head scan are normal. There is no signs of more serious causes for your headache. It may be a sinus type headache. Also consider a migraine type headache as well. Use Tylenol every 4 hours if needed for headache. Ondansetron if needed for nausea. At hydrocodone if needed for worse headache. Discharge Date/Time: 05/10/19 22:08
[2019-05-10 20:03] LABS: ALBUMIN 4.4 g/dL (3.2-5.5); ALBUMIN/GLOBULIN RATIO 1.3 (1.0-2.2); BILIRUBIN,TOTAL 0.6 mg/dL (0.2-1.0); CALCIUM 10.1 mg/dL (8.5-10.3); CREATININE 0.6 mg/dL (0.4-1.0); TOTAL PROTEIN 7.8 g/dL (6.7-8.2)
[2019-05-10] MEDS ORDERED: KETOROLAC 15 MG/ML VIAL IVP STA (20:15)
[2019-05-10] MEDS ORDERED: diphenhydrAMINE INJ 50 MG/ML VIAL IVP STA (20:16)
[2019-05-10] MEDS ORDERED: METOCLOPRAMIDE 10 MG/2 ML VIAL IVP STA (20:16)
[2019-05-10] MEDS ORDERED: SODIUM CHLORIDE 0.9% 1,000 ML IV ONE (20:17)
[2019-05-10] MEDS ORDERED: IOVERSOL 320 100 ML VIAL IVP ONE ×2 (20:29→21:01)
[2019-05-10 20:35] LABS: DIGOXIN 0.7 ng/mL; MAGNESIUM 1.8 mg/dL (1.7-2.8)
--- NOTE | 2019-05-10 21:33 | CT Report ---
Reason: headache and nausea; recently off Xarelto Procedure Date: 05/10/2019 Accession Number: [id number] / [id number] Procedure: CT - HEAD W/WO CPT Code: FULL RESULT: EXAM: CT HEAD WITH AND WITHOUT CONTRAST. EXAM DATE: 05/10/2019 08:59 PM. CLINICAL HISTORY: Headache and nausea; recently off Xarelto. COMPARISON: HEAD W/O 01/28/2017 4:40 PM. TECHNIQUE: Multiaxial CT images were obtained from the foramen magnum to the vertex prior to and following the administration of intravenous contrast. Reformats: Sagittal and coronal. IV contrast: 80 cc Optiray 320. In accordance with CT protocol optimization, one or more of the following dose reduction techniques were utilized for this exam: automated exposure control, adjustment of mA and/or KV based on patient size, or use of iterative reconstructive technique. FINDINGS: Age-appropriate prominence of the ventricles and sulci is noted. Areas of low attenuation in the cerebral hemisphere white matter bilaterally are stable. No extra-axial fluid collection or intracranial hemorrhage is present. No mass is present in either orbit. No enhancing mass is identified in the brain parenchyma. Major dural venous sinuses are patent. IMPRESSION: 1. No acute intracranial process. 2. Stable small vessel ischemic change in the cerebral hemisphere white matter bilaterally. 3. Major dural venous sinuses are patent. RADIA
[2019-05-10 22:08] VITALS: BP 107/57
== END 2019-05-10 22:08 | disposition home or self-care (01) ==
LOC: ED 19:20
DX: R51 Headache (principal); R11.2 Nausea with vomiting, unspecified; E11.9 Type 2 diabetes mellitus without complications; Z79.84 Long term (current) use of oral hypoglycemic drugs; I48.91 Unspecified atrial fibrillation; Z86.711 Personal history of pulmonary embolism; Z79.01 Long term (current) use of anticoagulants; I11.0 Hypertensive heart disease with heart failure; I50.9 Heart failure, unspecified; R41.3 Other amnesia
CPT/HCPCS: 36415; 70470; 80053; 80162; 83036; 83690; 83735; 85025; 85610; 93005; 96361; 96374; 96375; 99284; 99285; J1200; J2765; Q9967

== ENCOUNTER 2019-09-18 09:25 | Outpatient (CLI) | payer MEDICARE, OTHER ==
[2019-09-18 09:44] LABS: BASOPHILS # (AUTO) 0.1 10^3/uL (0.0-0.1); BASOPHILS % (AUTO) 0.9 %; EOSINOPHILS # (AUTO) 0.1 10^3/uL (0.0-0.7); EOSINOPHILS % (AUTO) 2.6 %; HGB - HEMOGLOBIN 14.3 g/dL (12.0-16.0); LYMPHOCYTES # (AUTO) 1.4 10^3/uL (1.5-3.5); LYMPHOCYTES % (AUTO) 25.9 %; MEAN CORPUSCULAR HEMOGLOBIN 29.4 pg (27.0-31.0); MEAN CORPUSCULAR HGB CONC 32.6 g/dL (32.0-36.0); MEAN CORPUSCULAR VOLUME 90.1 fL (81.0-99.0); MEAN PLATELET VOLUME 10.3 fL (7.9-10.8); MONOCYTES # (AUTO) 0.6 10^3/uL (0.0-1.0); NEUTROPHILS # (AUTO) 3.3 10^3/uL (1.5-6.6); NEUTROPHILS % (AUTO) 60.4 %; PLT - PLATELET COUNT 250 10^3/uL (130-450); RED BLOOD COUNT 4.86 10^6/uL (4.20-5.40); RED CELL DISTRIBUTION WIDTH 14.4 % (12.0-15.0); WHITE BLOOD COUNT 5.5 x10^3/uL (4.8-10.8)
[2019-09-18 10:02] LABS: ALBUMIN 4.2 g/dL (3.2-5.5); ALBUMIN/GLOBULIN RATIO 1.4 (1.0-2.2); ALKALINE PHOSPHATASE 70 IU/L (42-121); ALT ALANINE AMINOTRANSFERASE 17 IU/L (10-60); AST ASPARTATE AMINOTRANSFERASE 21 IU/L (10-42); BILIRUBIN,TOTAL 0.7 mg/dL (0.2-1.0); BUN - BLOOD UREA NITROGEN 22 mg/dL (6-20); CALCIUM 9.7 mg/dL (8.5-10.3); CARBON DIOXIDE - CO2 26 mmol/L (21-32); CHLORIDE 104 mmol/L (101-111); CHOL/HDL RATIO 3.5 (<4.4); CHOLESTEROL 159 mg/dL; CREATININE 0.7 mg/dL (0.4-1.0); GFR - MDRD 79 (>89); GLUCOSE 133 mg/dL (70-100); HDL CHOLESTEROL 46 mg/dL; LDL CHOLESTEROL,CALCULATED 88 mg/dL; LDL/HDL RATIO 1.9 (<4.4); SODIUM 140 mmol/L (135-145); TOTAL PROTEIN 7.2 g/dL (6.7-8.2); VLDL CHOLESTEROL 25 mg/dL
[2019-09-18 10:09] LABS: HB2 TOTAL 14.7 g/dL; HEMOGLOBIN A1C 0.84 g/dL; HEMOGLOBIN A1C % 7.4 % (4.6-6.2)
== END 2019-09-18 09:26 | disposition home or self-care (01) ==
LOC: LAB 09:25
PROVIDERS: ATTEND Nurse Practitioner
DX: Z79.01 Long term (current) use of anticoagulants (principal); Z79.899 Other long term (current) drug therapy; I50.9 Heart failure, unspecified; E11.9 Type 2 diabetes mellitus without complications; I48.0 Paroxysmal atrial fibrillation; E78.2 Mixed hyperlipidemia
CPT/HCPCS: 36415; 80053; 80061; 82306; 82607; 83036; 83721; 84443; 85025

== ENCOUNTER 2019-12-20 08:00 | Outpatient (CLI) | payer MEDICARE, OTHER ==
[2019-12-20 13:00] LABS: CALCIUM 10.1 mg/dL (8.5-10.3); CREATININE 0.7 mg/dL (0.4-1.0)
[2019-12-20 13:15] LABS: HB2 TOTAL 14.8 g/dL; HEMOGLOBIN A1C 0.68 g/dL; HEMOGLOBIN A1C % 6.4 % (4.6-6.2)
== END 2019-12-20 23:59 | disposition home or self-care (01) ==
LOC: LAB.WCP 08:00
PROVIDERS: ATTEND Nurse Practitioner
DX: E11.9 Type 2 diabetes mellitus without complications (principal); Z79.899 Other long term (current) drug therapy
CPT/HCPCS: 36415; 80048; 83036

== ENCOUNTER 2020-01-08 08:21 | Outpatient (CLI) | payer MEDICARE, OTHER ==
[2020-01-08 09:06] LABS: FREE T3 3.16 pg/mL (2.5-3.9)
== END 2020-01-08 08:22 | disposition home or self-care (01) ==
LOC: LAB 08:21
PROVIDERS: ATTEND Nurse Practitioner
DX: L60.3 Nail dystrophy (principal); E11.9 Type 2 diabetes mellitus without complications; E78.2 Mixed hyperlipidemia
CPT/HCPCS: 36415; 84443; 84481

== ENCOUNTER 2020-07-15 10:33 | Outpatient (CLI) | payer MEDICARE, OTHER ==
[2020-07-15 13:09] LABS: HEMOGLOBIN A1c% 6.1 % (4.27-6.07)
== END 2020-07-15 10:34 | disposition home or self-care (01) ==
LOC: LAB 10:33
PROVIDERS: ATTEND Family Medicine
DX: E11.9 Type 2 diabetes mellitus without complications (principal)
CPT/HCPCS: 36415; 83036

== ENCOUNTER 2020-08-17 10:36 | Emergency (ER) | payer MEDICARE, OTHER ==
--- NOTE | 2020-08-17 11:17 | ED Physician Documentation ---
PD HPI HEADACHE - Stated complaint Stated Complaint: HEADACHE - Chief complaint Chief Complaint: Neuro - History obtained from History obtained from: Patient - History of Present Illness Timing - onset: How many days ago (4) Timing - onset during: Light activity (she was sitting at desk and had onset of left sided headache 4 days ago. Persistent since then. No focal deficits. No fever. No injury. History of migraines in the past but states this feels different since no visual changes nor nausea.) Timing - duration: Days (4) Timing - details: Abrupt onset, Still present Worst headache ever?: No: Worst headache ever? Location: Front, Left Quality: Aching. No: Thunderclap Associated symptoms: No: Fever, Stiff neck, Nausea, Vomiting, Eye pain Improved by: No: Meds (tylenol at home) Worsened by: No: Light, Noise Contributing factors: No: Hypertension, Recent illness, Trauma Similar symptoms before: Diagnosis (migraines in the past but not exactly the same) Recently seen: Not recently seen Review of Systems Constitutional: denies: Fever, Chills Eyes: denies: Decreased vision, Photophobia Nose: denies: Rhinorrhea / runny nose, Congestion Throat: denies: Sore throat Respiratory: denies: Cough GI: denies: Abdominal Pain, Nausea, Vomiting, Diarrhea Neurologic: reports: Headache. denies: Focal weakness, Numbness, Difficulty speaking, Altered mental status, Head injury PD PAST MEDICAL HISTORY - Past Medical History Cardiovascular: Hypertension, High cholesterol, Pulmonary embolism, Atrial fibrillation, Arrhythmia Respiratory: None Neuro: Dementia, Migraines, Peripheral neuropathy Endocrine/Autoimmune: Type 2 diabetes GI: None BENEFIT SPECIALIST: None : Incontinence, Frequency HEENT: Chronic vision loss, Chronic hearing loss, Dental implants, Other Psych: Depression Musculoskeletal: Osteoarthritis, Chronic back pain Derm: Rosacea, Other - Past Surgical History Past Surgical History: Yes General: Colonoscopy Ortho: Knee replacement, Spine surgery /BENEFIT SPECIALIST: section, Hysterectomy, Oophrectomy HEENT: Cataracts, Detached retina repair - Present Medications Home Medications: Ambulatory Orders Medication Instructions Recorded Confirmed Digoxin [Lanoxin] 250 mcg PO DAILY 09/23/13 08/17/20 Metformin HCl [Metformin HCl ER] 500 mg PO BID 09/23/13 08/17/20 Multivitamin [Multi-Vitamin Daily] 1 each PO DAILY 09/23/13 08/17/20 Citalopram [CeleXA] 10 mg PO DAILY 02/10/14 08/17/20 Pravastatin Sodium 20 mg PO DAILY 07/02/14 08/17/20 Triamterene/Hydrochlorothiazid 1 tab PO DAILY 07/02/14 08/17/20 [Triamterene-Hctz 37.5-25 mg Cp] Acetaminophen 500 mg PO Q8HR 12/12/16 08/17/20 Donepezil HCl 10 mg PO DAILY 12/12/16 08/17/20 Rivaroxaban [Xarelto] 20 mg PO DAILY 12/12/16 08/17/20 Acetaminophen/Diphenhydramine 1 each PO QPM PRN 05/04/19 08/17/20 [Tylenol Pm Ex-Strength Caplet] Cyanocobalamin (Vitamin B-12) 6,000 mcg PO DAILY 05/04/19 08/17/20 [Vitamin B-12] HYDROcod/ACETAM 5/325 [[place]ake 5/325] 1 ea PO Q6H PRN #10 tablet 08/17/20 Promethazine [Phenergan] 25 mg PO Q6H PRN #10 tab 08/17/20 - Allergies Allergies/Adverse Reactions: Allergies Allergy/AdvReac Type Severity Reaction Status Date / Time codeine Allergy Itching, Verified 08/17/20 10:49 nausea kiwi Allergy Anaphylaxis Verified 08/17/20 10:49 - Social History Does the pt smoke?: No Smoking Status: Never smoker Does the pt drink ETOH?: No Does the pt have substance abuse?: No - Immunizations Immunizations are current?: Yes - POLST Patient has POLST: No PD ED PE NORMAL - Vitals Vital signs reviewed: Yes - General General: Alert and oriented X 3, No acute distress, Well developed/nourished - HEENT HEENT: Atraumatic, PERRL, EOMI, Moist mucous membranes, Pharynx benign, Other (no tenderness at temples. ) - Neck Neck: Supple, no meningeal sign, No adenopathy - Cardiac Cardiac: RRR, No murmur - Respiratory Respiratory: Clear bilaterally - Abdomen Abdomen: Soft, Non tender - Derm Derm: Normal color, Warm and dry - Neuro Neuro: Alert and oriented X 3, rn endoscopy 2-12 intact, No motor deficit, No sensory deficit, Normal speech Eye Opening: Spontaneous Motor: Obeys Commands Verbal: Oriented GCS Score: 15 Results - Vitals Vitals: Vital Signs - 24 hr 08/17/20 08/17/20 08/17/20 10:49 11:18 12:14 Temperature 36.8 C Heart Rate 81 74 80 Respiratory 18 22 16 Rate Blood Pressure 117/60 110/68 114/61 O2 Saturation 98 97 96 08/17/20 08/17/20 08/17/20 12:28 13:00 13:27 Temperature 36.5 C Heart Rate 67 73 73 Respiratory 15 16 20 Rate Blood Pressure 116/78 100/64 105/57 L O2 Saturation 97 94 96 Oxygen O2 Source [With Activity] Room air O2 Source [Without Activity] Room air O2 Source Room air - Labs Labs: Laboratory Tests 08/17/20 08/17/20 08/17/20 11:35 11:35 11:35 WBC 10.3 RBC 4.68 Hgb 14.1 Hct 43.5 MCV 92.9 MCH 30.1 MCHC 32.4 RDW 13.8 Plt Count 208 MPV 9.9 Neut # (Auto) 8.1 H Lymph # (Auto) 1.1 L [place] # (Auto) 0.9 Eos # (Auto) 0.0 Baso # (Auto) 0.0 Absolute Nucleated RBC 0.00 Nucleated RBC % 0.0 ESR PT 21.0 H INR 2.0 H APTT 29.8 Sodium 135 Potassium 3.9 Chloride 94 L Carbon Dioxide 29 Anion Gap 12.0 BUN 18 Creatinine 0.7 Estimated GFR (MDRD) 79 L Glucose 145 H Calcium 9.8 08/17/20 11:35 WBC RBC Hgb Hct MCV MCH MCHC RDW Plt Count MPV Neut # (Auto) Lymph # (Auto) [place] # (Auto) Eos # (Auto) Baso # (Auto) Absolute Nucleated RBC Nucleated RBC % ESR 16 PT INR APTT Sodium Potassium Chloride Carbon Dioxide Anion Gap BUN Creatinine Estimated GFR (MDRD) Glucose Calcium - Rads (name of study) head CT Radiology: Prelim report reviewed (no acute process. No ICH. ), See rad report PD MEDICAL DECISION MAKING - ED course Complexity details: reviewed results (no ICH, swelling, tumors), re-evaluated patient (She states headache is completely gone after meds here, which targeted migraine primarily. ), considered differential, d/w patient, d/w family (daughter) Departure - Departure Disposition: 01 Home, Self Care Clinical Impression: Generalized headache Condition: Stable Record reviewed to determine appropriate education?: Yes Instructions: ED Cephalgia Unspecified Follow-Up: Eufemia Olmstead ARNP, PSYCHIATRY PHYSICIAN-C [Primary Care Provider] - Prescriptions: HYDROcod/ACETAM 5/325 [[place] 5/325] 1 ea PO Q6H PRN #10 tablet PRN Reason: Pain Promethazine [Phenergan] 25 mg PO Q6H PRN #10 tab PRN Reason: Nausea / Vomiting Comments: Your temperature and vital signs as well as your blood tests and CT scan are normal here. I presume your headache was a variation of a migraine or vascular headache given its improvement with the medicines here. Continue usual medicines and cysts good hydration. For recurrent similar headaches or migraine type headaches, you can use a Tylenol and/or ibuprofen initially and see if it improves. If not you can try the promethazine along with hydrocodone which should help with migraine type headaches. Use this periodically if needed. Follow-up with your primary care if frequent recurrent episodes for further potential testing or other treatment medications. Discharge Date/Time: 08/17/20 13:28
[2020-08-17] MEDS ORDERED: SODIUM CHLORIDE 0.9% 1,000 ML IV STA (11:47)
[2020-08-17] MEDS ORDERED: KETOROLAC 15 MG/ML VIAL IVP STA (11:48)
[2020-08-17] MEDS ORDERED: PROCHLORPERAZINE 10 MG/2 ML VIAL IVP STA (11:48)
[2020-08-17] MEDS ORDERED: MORPHINE 2 MG/ML CARPUJECT IVP STA (11:48)
[2020-08-17] MEDS ORDERED: diphenhydrAMINE INJ 50 MG/ML VIAL IVP STA (11:48)
[2020-08-17 12:02] LABS: BASOPHILS % (AUTO) 0.2 %; EOSINOPHILS % (AUTO) 0.2 %; HGB - HEMOGLOBIN 14.1 g/dL (12.0-16.0); LYMPHOCYTES # (AUTO) 1.1 10^3/uL (1.5-3.5); LYMPHOCYTES % (AUTO) 11.1 %; MEAN CORPUSCULAR HEMOGLOBIN 30.1 pg (27.0-31.0); MEAN CORPUSCULAR HGB CONC 32.4 g/dL (32.0-36.0); MEAN CORPUSCULAR VOLUME 92.9 fL (81.0-99.0); MEAN PLATELET VOLUME 9.9 fL (7.9-10.8); MONOCYTES # (AUTO) 0.9 10^3/uL (0.0-1.0); MONOCYTES % (AUTO) 9.1 %; NEUTROPHILS # (AUTO) 8.1 10^3/uL (1.5-6.6); PLT - PLATELET COUNT 208 10^3/uL (130-450); RED BLOOD COUNT 4.68 10^6/uL (4.20-5.40); RED CELL DISTRIBUTION WIDTH 13.8 % (12.0-15.0); WHITE BLOOD COUNT 10.3 x10^3/uL (4.8-10.8)
[2020-08-17 12:09] LABS: CALCIUM 9.8 mg/dL (8.5-10.3); CREATININE 0.7 mg/dL (0.4-1.0)
[2020-08-17 12:15] LABS: PARTIAL THROMBOPLASTIN TIME 29.8 secs (24.9-33.3)
--- NOTE | 2020-08-17 13:06 | CT Report ---
PROCEDURE: HEAD WO INDICATIONS: abrupt headache 4 days ago TECHNIQUE: Noncontrast 4.5 mm thick angled axial sections acquired from the foramen magnum to the vertex. For r adiation dose reduction, the following was used: automated exposure control, adjustment of mA and/or kV according to patient size. COMPARISON: None. FINDINGS: Image quality: Excellent. CSF spaces: Basal cisterns are patent. No extra-axial fluid collections. Ventricles are normal in size and shape. Brain: No midline shift. No intracranial masses or hemorrhage. No large area of hypodensity in a va scular diffusion to suggest acute infarction. There is periventricular hypodensity and hypodensity in the left insular cortex. Findings most compatible with chronic microvascular ischemic disease. Skull and face: Calvarium and visualized facial bones are intact, without suspicious lesions. Sinuses: Visualized sinuses and mastoids are clear. IMPRESSION: No acute intracranial abnormality. Chronic microvascular ischemic disease. Mild hypodensity in the left insular cortex could be due to p rior insult. Reviewed by: Sánchez Soriano MD on 08/17/2020 12:04 PM [facility] Approved by: Sánchez Soriano MD on 08/17/2020 12:04 PM [facility] Station ID: [id number]
[2020-08-17 13:28] VITALS: BP 105/57
== END 2020-08-17 13:28 | disposition home or self-care (01) ==
LOC: ED 10:36
DX: R51.9 Headache, unspecified (principal); I10 Essential (primary) hypertension; E11.9 Type 2 diabetes mellitus without complications; Z79.84 Long term (current) use of oral hypoglycemic drugs; Z79.01 Long term (current) use of anticoagulants
CPT/HCPCS: 36415; 70450; 80048; 85025; 85610; 85651; 85730; 96374; 96375; 99284; 99285; J1200

== ENCOUNTER 2020-09-18 08:00 | Outpatient (CLI) | payer MEDICARE, OTHER ==
[2020-09-18 18:42] LABS: BASOPHILS # (AUTO) 0.1 10^3/uL (0.0-0.1); BASOPHILS % (AUTO) 0.7 %; EOSINOPHILS # (AUTO) 0.2 10^3/uL (0.0-0.7); EOSINOPHILS % (AUTO) 2.2 %; HGB - HEMOGLOBIN 13.8 g/dL (12.0-16.0); LYMPHOCYTES # (AUTO) 1.6 10^3/uL (1.5-3.5); MEAN CORPUSCULAR HEMOGLOBIN 29.3 pg (27.0-31.0); MEAN CORPUSCULAR HGB CONC 30.9 g/dL (32.0-36.0); MEAN CORPUSCULAR VOLUME 94.7 fL (81.0-99.0); MEAN PLATELET VOLUME 11.1 fL (7.9-10.8); MONOCYTES # (AUTO) 0.6 10^3/uL (0.0-1.0); MONOCYTES % (AUTO) 8.6 %; NEUTROPHILS % (AUTO) 67.2 %; PLT - PLATELET COUNT 222 10^3/uL (130-450); RED BLOOD COUNT 4.71 10^6/uL (4.20-5.40); RED CELL DISTRIBUTION WIDTH 14.6 % (12.0-15.0); WHITE BLOOD COUNT 7.4 x10^3/uL (4.8-10.8)
[2020-09-18 19:37] LABS: % IRON SATURATION 17 % (20-50); ALBUMIN 4.2 g/dL (3.2-5.5); ALBUMIN/GLOBULIN RATIO 1.3 (1.0-2.2); ALKALINE PHOSPHATASE 68 IU/L (42-121); ALT ALANINE AMINOTRANSFERASE 18 IU/L (10-60); AST ASPARTATE AMINOTRANSFERASE 19 IU/L (10-42); BILIRUBIN,TOTAL 0.7 mg/dL (0.2-1.0); BUN - BLOOD UREA NITROGEN 18 mg/dL (6-20); CALCIUM 10.1 mg/dL (8.5-10.3); CARBON DIOXIDE - CO2 28 mmol/L (21-32); CHLORIDE 102 mmol/L (101-111); CREATININE 0.6 mg/dL (0.4-1.0); DIGOXIN 0.6 ng/mL; GLUCOSE 102 mg/dL (70-100); IRON 67 ug/dL (28-170); TOTAL IRON BINDING CAPACITY 391 ug/dL (250-450); TOTAL PROTEIN 7.4 g/dL (6.7-8.2); TRANSFERRIN 279 mg/dL (192-382)
== END 2020-09-18 23:59 | disposition home or self-care (01) ==
LOC: LAB.WCP 08:00
PROVIDERS: ATTEND Nurse Practitioner
DX: R60.9 Edema, unspecified (principal); I50.9 Heart failure, unspecified; I48.0 Paroxysmal atrial fibrillation; Z79.899 Other long term (current) drug therapy
CPT/HCPCS: 36415; 80053; 80162; 83540; 84466; 85025

== ENCOUNTER 2020-10-03 13:09 | Outpatient (CLI) | payer MEDICARE, OTHER ==
--- NOTE | 2020-10-03 16:21 | Ultrasound Report ---
PROCEDURE: Duplex Lwr Ext Arterial Bilat INDICATIONS: LEG CRAMPS TECHNIQUE: Color and pulse Doppler interrogation was performed of both lower extremity arterial systems, with im age documentation. COMPARISON: None FINDINGS: Right lower extremity: Common femoral artery: 81.4 cm/sec, with triphasic flow. Deep femoral artery: 46.7 cm/sec, with triphasic flow. Proximal superficial femoral artery: 88.9 cm/sec, with triphasic flow. Mid superficial femoral artery: 60.3 cm/sec, with triphasic flow. Distal superficial femoral artery: 65.8 cm/sec, with triphasic flow. Popliteal artery: 55.6 cm/sec, with triphasic flow. Posterior tibial artery: 121.4 cm/sec, with triphasic flow. Anterior tibial artery/dorsalis pedis: 64.5 cm/sec, with triphasic flow. Cortez-scale imaging description: Negative Left lower extremity: Common femoral artery: 83.3 cm/sec, with triphasic flow. Deep femoral artery: 42.7 cm/sec, with triphasic flow. Proximal superficial femoral artery: 54.3 cm/sec, with triphasic flow. Mid superficial femoral artery: 62.0 cm/sec, with triphasic flow. Distal superficial femoral artery: 53.9 cm/sec, with triphasic flow. Popliteal artery: 41.7 cm/sec, with triphasic flow. Posterior tibial artery: 94.0 cm/sec, with triphasic flow. Anterior tibial artery/dorsalis pedis: 38.5 cm/sec, with triphasic flow. Cortez-scale imaging description: Negative IMPRESSION: No evidence of arterial insufficiency to the bilateral lower extremities. Reviewed by: Idania Burroughs MD on 10/03/2020 4:19 PM PST Approved by: Idania Burroughs MD on 10/03/2020 4:19 PM PST Station ID: [id number]
--- NOTE | 2020-10-03 16:34 | Ultrasound Report ---
PROCEDURE: Duplex Ext Veins Bilateral INDICATIONS: Leg cramping and pain TECHNIQUE: Real-time imaging, as well as color and pulse Doppler interrogation, were performed of the deep veins of both legs from the inguinal ligament to the popliteal fossa. COMPARISON: None FINDINGS: The deep veins are normally compressible, and free of intraluminal thrombus. Color and pu lse Doppler demonstrate normal phasic intravascular flow. There is normal augmentation response to d istal compression maneuver. IMPRESSION: No sonographic evidence of DVT. 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 Reviewed by: Scott Alarcon MD on 10/03/2020 4:33 PM PST Approved by: Scott Alarcon MD on 10/03/2020 4:33 PM PST Station ID: [id number]
== END 2020-10-03 13:10 | disposition home or self-care (01) ==
LOC: DI 13:09
PROVIDERS: ATTEND Nurse Practitioner
DX: R25.2 Cramp and spasm (principal); I83.93 Asymptomatic varicose veins of bilateral lower extremities; I50.9 Heart failure, unspecified; I48.0 Paroxysmal atrial fibrillation; E78.2 Mixed hyperlipidemia; I08.3 Combined rheumatic disorders of mitral, aortic and tricuspid valves
CPT/HCPCS: 93925; 93970

== ENCOUNTER 2020-10-07 11:04 | Outpatient (CLI) | payer MEDICARE, OTHER | END 2020-10-07 11:05 | disposition home or self-care (01) | LOC: DI 11:04 | PROVIDERS: ATTEND Nurse Practitioner | DX: I48.91 Unspecified atrial fibrillation (principal); I07.1 Rheumatic tricuspid insufficiency | CPT/HCPCS: 93306 ==

== ENCOUNTER 2021-05-08 11:10 | Outpatient (CLI) | payer MEDICARE, OTHER | END 2021-05-08 11:11 | disposition critical access hospital (66) | LOC: EMS 11:10 | DX: R42 Dizziness and giddiness (principal); R53.1 Weakness; R06.02 Shortness of breath | CPT/HCPCS: A0425; A0429 ==

== ENCOUNTER 2021-05-08 11:29 | Emergency (ER) | payer MEDICARE, OTHER ==
[2021-05-08 11:47] VITALS: BP 119/74
--- NOTE | 2021-05-08 11:47 | ED Physician Documentation ---
History of Present Illness - Stated complaint Stated Complaint: DIZZY/SOA - Additonal information Additional information: 89-year-old female was brought to the emergency department for evaluation of increased weakness, shortness of air, feeling lightheaded and unable to stand. She has a recent history of cardiac arrest while at an airport in [place] about 3 weeks ago. She was defibrillated at the airport and did receive CPR for short period of time. She was transferred to a hospital in [place] and underwent an unknown cardiac procedure through femoral access. She reports that since returning from the hospital in [facility] she has felt generally weak and short of air. She has noted that her blood sugars in the morning have been in the 70s and 80s which she thinks may be atypical for her. She is anticoagulated on Xarelto secondary to history of atrial fibrillation. She has tried to follow-up with her PCP as well as her cat cracker operator since returning from [place] but does not have an appointment until 05/15/2021. Time in this emergency department she says that she is feeling better from this morning though no specific treatment has been rendered. She endorses some chest pain when she takes a deep breath but she attributes this to her CPR. She has no new leg swelling, cough or fevers. There are no focal neuro deficits. Hx is obtained mostly from chart and EMS. pt does have a hx of dementia. Awaiting arrival of family for more input Review of Systems Constitutional: denies: Fever, Chills Eyes: reports: Reviewed and negative Ears: reports: Reviewed and negative Throat: reports: Reviewed and negative Cardiac: reports: Chest pain / pressure Respiratory: reports: Reviewed and negative. denies: Cough GI: denies: Abdominal Pain, Nausea, Vomiting : reports: Reviewed and negative Skin: denies: Rash, Lesions Musculoskeletal: denies: Neck pain, Back pain, Joint pain Neurologic: reports: Generalized weakness. denies: Focal weakness, Difficulty speaking, Near syncope, Syncope, Seizure, Confused, Headache, LOC Psychiatric: reports: Reviewed and negative PD PAST MEDICAL HISTORY - Past Medical History Cardiovascular: Hypertension, High cholesterol, Pulmonary embolism, Atrial fibrillation, Arrhythmia Respiratory: None Neuro: Dementia, Migraines, Peripheral neuropathy Endocrine/Autoimmune: Type 2 diabetes GI: None UTILITY SYSTEM OPERATOR: None : Incontinence, Frequency HEENT: Chronic vision loss, Chronic hearing loss, Dental implants, Other Psych: Depression Musculoskeletal: Osteoarthritis, Chronic back pain Derm: Rosacea, Other - Past Surgical History Past Surgical History: Yes General: Colonoscopy Ortho: Knee replacement, Spine surgery /UTILITY SYSTEM OPERATOR: section, Hysterectomy, Oophrectomy HEENT: Cataracts, Detached retina repair - Present Medications Home Medications: Ambulatory Orders Medication Instructions Recorded Confirmed Digoxin [Lanoxin] 250 mcg PO DAILY 09/23/13 08/17/20 Metformin HCl [Metformin HCl ER] 500 mg PO BID 09/23/13 08/17/20 Multivitamin [Multi-Vitamin Daily] 1 each PO DAILY 09/23/13 08/17/20 Citalopram [CeleXA] 10 mg PO DAILY 02/10/14 08/17/20 Pravastatin Sodium 20 mg PO DAILY 07/02/14 08/17/20 Triamterene/Hydrochlorothiazid 1 tab PO DAILY 07/02/14 08/17/20 [Triamterene-Hctz 37.5-25 mg Cp] Acetaminophen 500 mg PO Q8HR 12/12/16 08/17/20 Donepezil HCl 10 mg PO DAILY 12/12/16 08/17/20 Rivaroxaban [Xarelto] 20 mg PO DAILY 12/12/16 08/17/20 Acetaminophen/Diphenhydramine 1 each PO QPM PRN 05/04/19 08/17/20 [Tylenol Pm Ex-Strength Caplet] Cyanocobalamin (Vitamin B-12) 6,000 mcg PO DAILY 05/04/19 08/17/20 [Vitamin B-12] HYDROcod/ACETAM 5/325 [[place]ol[place] 5/325] 1 ea PO Q6H PRN #10 tablet 08/17/20 Promethazine [Phenergan] 25 mg PO Q6H PRN #10 tab 08/17/20 - Allergies Allergies/Adverse Reactions: Allergies Allergy/AdvReac Type Severity Reaction Status Date / Time codeine Allergy Itching, Verified 05/08/21 11:47 nausea kiwi Allergy Anaphylaxis Verified 05/08/21 11:47 oxycodone Allergy Unknown Verified 05/08/21 11:47 tramadol Allergy Unknown Verified 05/08/21 11:47 - Social History Does the pt smoke?: No Smoking Status: Never smoker Does the pt drink ETOH?: No Does the pt have substance abuse?: No - Immunizations Immunizations are current?: Yes - POLST Patient has POLST: No PD ED PE EXPANDED - General General: Alert, No acute distress - Neck Neck: Supple w/out meningeal sx. No: Adenopathy - Cardiac Cardiac: Irregularly irregular, Murmur Present, Radial strong equal, Pedal strong equal, Cap refill < 2 sec - Respiratory Respiratory: Clear to ausultation tahir. No: Distress, Labored - Abdomen Abdomen: Normal Bowel sounds. No: Tender to palpation - Derm Derm: Normal color, Warm and dry. No: Rash - Extremities Extremities: Pedal edema bilateral (unchanged from baseline), Pedal Pulses Present - Neuro Neuro: Alert and Oriented X 3, CNII-XII intact, Normal finger nose, Normal speech - GCS Eye Opening: Spontaneous Motor: Obeys Commands Verbal: Oriented Total: 15 Results - Vitals Vitals: Vital Signs - 24 hr 05/08/21 11:36 Heart Rate 76 Respiratory 13 Rate Blood Pressure 119/74 O2 Saturation 99 Oxygen O2 Source [] Room air O2 Source [] Room air O2 Source Room air - EKG (time done) 1150 Rate: Rate (enter#) (76) Rhythm: Atrial fibrillation Intervals: No: Prolonged QT, QRS normal QRS: LVH Ischemia: Q waves Compare to prior EKG: Changed from prior EKG (increased QS new in V2-5) - Labs Labs: Laboratory Tests 05/08/21 05/08/21 05/08/21 12:03 12:03 12:03 WBC 10.1 RBC 4.46 Hgb 13.0 Hct 41.4 MCV 92.8 MCH 29.1 MCHC 31.4 L RDW 13.5 Plt Count 406 MPV 9.9 Neut # (Auto) 8.0 H Lymph # (Auto) 1.1 L [place] # (Auto) 0.6 Eos # (Auto) 0.2 Baso # (Auto) 0.1 Absolute Nucleated RBC 0.00 Nucleated RBC % 0.0 Sodium 140 Potassium 3.9 Chloride 102 Carbon Dioxide 27 Anion Gap 11.0 BUN 16 Creatinine 0.8 Estimated GFR (MDRD) 68 L Glucose 124 H Calcium 9.8 Total Bilirubin 0.8 AST 21 ALT 15 Alkaline Phosphatase 112 Troponin I High Sens 7.7 B-Natriuretic Peptide Total Protein 7.2 Albumin 3.9 Globulin 3.3 Albumin/Globulin Ratio 1.2 Lipase 45 05/08/21 12:03 WBC RBC Hgb Hct MCV MCH MCHC RDW Plt Count MPV Neut # (Auto) Lymph # (Auto) [place] # (Auto) Eos # (Auto) Baso # (Auto) Absolute Nucleated RBC Nucleated RBC % Sodium Potassium Chloride Carbon Dioxide Anion Gap BUN Creatinine Estimated GFR (MDRD) Glucose Calcium Total Bilirubin AST ALT Alkaline Phosphatase Troponin I High Sens B-Natriuretic Peptide 102 H Total Protein Albumin Globulin Albumin/Globulin Ratio Lipase - Rads (name of study) CXR Radiology: Final report received (Bilateral lung interstitial prominence which could represent lung disease pulmonary edema or atypical pneumonia) PD MEDICAL DECISION MAKING - ED course Complexity details: considered differential, d/w patient, d/w family ED course: 89-year-old female who has a history of atrial fib, congestive heart failure presents the emergency department with concerns of being excessively fatigued and generally weak. She unfortunately had a witnessed cardiac arrest while traveling to [place] about 3 weeks ago. She did receive a short round of CPR as well as defibrillation. I do not have access to the records from the health center she was treated at [facility]. Today in the emergency department the patient appears very well, her vital signs are not abnormal. She is in atrial fibrillation with a rate controlled rhythm. She is anticoagulated on Xarelto. Screening labs do not show an elevated troponin and her BNP is not elevated. Chest x-ray shows no acute worrisome abnormalities. Cardiopulmonary exam shows no hypoxia crackles or wheeze. Patient had reported that her blood sugars have been lower in the morning perhaps in the 70s and 80s. This may be contributing to her weakness. I have advised her to stop taking the Metformin until she sees her primary care provider. She is scheduled to see a cat cracker operator next week which is appropriate close follow-up. I suspect that she is likely severely deconditioned After her recent events but there does not appear here to be any acute abnormalities that would require hospitalization at this time. I discussed these findings with her on the phone. Emergent worrisome return precautions were discussed. Departure - Departure Disposition: 01 Home, Self Care Clinical Impression: Generalized weakness, History of sudden cardiac arrest, History of atrial fibrillation Condition: Stable Record reviewed to determine appropriate education?: Yes Comments: Dayanna you are seen in the emergency department today for feeling generally weak and fatigued after returning from travel in which you unfortunately had a cardiac arrest. Today in the emergency department your screening labs do not show any worrisome abnormalities. Your chest x-ray looks good. Your EKG does not show signs of having a current heart attack. You do not appear to be in severe heart failure. It is important to continue all the cardiac medications you have been taking. I do wonder if perhaps some of the weakness you are experiencing may be low blood sugars in the morning. At this time I would recommend that you stop taking the Metformin twice daily. Lower blood sugars can be more hazardous to your health at this time than high blood sugars. It is important that you continue to follow-up with a cat cracker operator on the that you are already scheduled for. I expect that after an event like you had a few weeks ago that you will be very fatigued, and tired. Be kind and gentle with yourself get rest when you need it. If at any point you have fainting episodes, have severe leg swelling, severe shortness of breath or chest pain then please return immediately to the ER for a second evaluation.
--- NOTE | 2021-05-08 12:03 | XRAY Report ---
PROCEDURE: Chest 1 View X-Ray INDICATIONS: Chest Pain TECHNIQUE: One view of the chest was acquired. COMPARISON: 02/11/2014. FINDINGS: Surgical changes and devices: None. Lungs and pleura: No pleural effusions or pneumothorax. Interstitial prominence in the lungs bilater ally. Mediastinum: Mediastinal contours appear normal. Heart size is normal. Bones and chest wall: No suspicious bony lesions. Overlying soft tissues appear unremarkable. IMPRESSION: Bilateral lung interstitial prominence which could represent lung disease, pulmonary edema or atypica l pneumonia. Reviewed by: Radha Levi MD, PhD on 05/08/2021 12:02 PM PDT Approved by: Radha Levi MD, PhD on 05/08/2021 12:02 PM PDT Station ID: [id number]
[2021-05-08 12:11] LABS: BASOPHILS # (AUTO) 0.1 10^3/uL (0.0-0.1); BASOPHILS % (AUTO) 0.8 %; EOSINOPHILS # (AUTO) 0.2 10^3/uL (0.0-0.7); EOSINOPHILS % (AUTO) 1.7 %; HCT - HEMATOCRIT 41.4 % (37.0-47.0); LYMPHOCYTES # (AUTO) 1.1 10^3/uL (1.5-3.5); LYMPHOCYTES % (AUTO) 11.2 %; MEAN CORPUSCULAR HEMOGLOBIN 29.1 pg (27.0-31.0); MEAN CORPUSCULAR HGB CONC 31.4 g/dL (32.0-36.0); MEAN CORPUSCULAR VOLUME 92.8 fL (81.0-99.0); MEAN PLATELET VOLUME 9.9 fL (7.9-10.8); MONOCYTES # (AUTO) 0.6 10^3/uL (0.0-1.0); MONOCYTES % (AUTO) 6.2 %; NEUTROPHILS % (AUTO) 79.7 %; PLT - PLATELET COUNT 406 10^3/uL (130-450); RED BLOOD COUNT 4.46 10^6/uL (4.20-5.40); RED CELL DISTRIBUTION WIDTH 13.5 % (12.0-15.0); WHITE BLOOD COUNT 10.1 x10^3/uL (4.8-10.8)
[2021-05-08 12:28] LABS: ALBUMIN 3.9 g/dL (3.2-5.5); ALBUMIN/GLOBULIN RATIO 1.2 (1.0-2.2); BILIRUBIN,TOTAL 0.8 mg/dL (0.2-1.0); CALCIUM 9.8 mg/dL (8.5-10.3); CREATININE 0.8 mg/dL (0.4-1.0); POTASSIUM 3.9 mmol/L (3.5-5.0); TOTAL PROTEIN 7.2 g/dL (6.7-8.2)
== END 2021-05-08 13:43 | disposition home or self-care (01) ==
LOC: EDUNIT# → ED 11:29
DX: R53.1 Weakness (principal); F03.90 Unspecified dementia, unspecified severity, without behavioral disturbance, psychotic disturbance, mood disturbance, and anxiety; I10 Essential (primary) hypertension; I48.91 Unspecified atrial fibrillation; Z79.01 Long term (current) use of anticoagulants; E11.42 Type 2 diabetes mellitus with diabetic polyneuropathy; Z79.84 Long term (current) use of oral hypoglycemic drugs
CPT/HCPCS: 36415; 80053; 83690; 83880; 84484; 85025; 93005; 99284

== ENCOUNTER 2022-01-28 08:28 | Outpatient (CLI) | payer MEDICARE, OTHER ==
[2022-01-28 08:50] LABS: CALCIUM 9.9 mg/dL (8.5-10.3); CREATININE 0.8 mg/dL (0.4-1.0); POTASSIUM 4.1 mmol/L (3.5-5.0)
[2022-01-28 08:55] LABS: ESTIMATED AVERAGE GLUCOSE 126 mg/dL (70-100)
[2022-01-28 09:04] LABS: CREATININE,URINE 108.3 mg/dL; MICROALBUM/CREATININE RATIO,UR 22.2 ug/mg (<30.0); MICROALBUMIN,URINE 2.4 mg/dL (0-300.0)
== END 2022-01-28 08:29 | disposition home or self-care (01) ==
LOC: LAB 08:28
PROVIDERS: ATTEND Registered Nurse
DX: E11.9 Type 2 diabetes mellitus without complications (principal)
CPT/HCPCS: 36415; 80048; 82043; 82570; 83036

== ENCOUNTER 2022-02-22 08:43 | Emergency (ER) | payer MEDICARE, OTHER ==
[2022-02-22] MEDS ORDERED: ONDANSETRON 4 MG/2 ML VIAL IVP STA (08:48)
[2022-02-22] MEDS ORDERED: SODIUM CHLORIDE 0.9% 1,000 ML IV STA (08:48)
[2022-02-22 09:13] LABS: BASOPHILS # (AUTO) 0.1 10^3/uL (0.0-0.1); BASOPHILS % (AUTO) 0.7 %; EOSINOPHILS % (AUTO) 0.6 %; HCT - HEMATOCRIT 45.2 % (37.0-47.0); HGB - HEMOGLOBIN 14.7 g/dL (12.0-16.0); LYMPHOCYTES # (AUTO) 0.7 10^3/uL (1.5-3.5); LYMPHOCYTES % (AUTO) 10.3 %; MEAN CORPUSCULAR HEMOGLOBIN 29.5 pg (27.0-31.0); MEAN CORPUSCULAR HGB CONC 32.5 g/dL (32.0-36.0); MEAN CORPUSCULAR VOLUME 90.8 fL (81.0-99.0); MEAN PLATELET VOLUME 10.2 fL (7.9-10.8); MONOCYTES # (AUTO) 0.3 10^3/uL (0.0-1.0); MONOCYTES % (AUTO) 4.8 %; NEUTROPHILS # (AUTO) 5.7 10^3/uL (1.5-6.6); NEUTROPHILS % (AUTO) 83.3 %; PLT - PLATELET COUNT 243 10^3/uL (130-450); RED BLOOD COUNT 4.98 10^6/uL (4.20-5.40); RED CELL DISTRIBUTION WIDTH 14.3 % (12.0-15.0); WHITE BLOOD COUNT 6.9 x10^3/uL (4.8-10.8)
[2022-02-22] MEDS: fentaNYL 100 MCG/2 ML VIAL IVP PRN ×3 (09:15→13:05)
[2022-02-22 09:20] LABS: INR 1.9 (0.8-1.2); PT - PROTHROMBIN TIME 21.7 secs (9.9-12.6)
[2022-02-22 09:28] LABS: ALBUMIN 4.1 g/dL (3.2-5.5); ALBUMIN/GLOBULIN RATIO 1.4 (1.0-2.2); ALKALINE PHOSPHATASE 77 IU/L (42-121); ALT ALANINE AMINOTRANSFERASE 18 IU/L (10-60); AST ASPARTATE AMINOTRANSFERASE 23 IU/L (10-42); BILIRUBIN,TOTAL 0.8 mg/dL (0.2-1.0); BUN - BLOOD UREA NITROGEN 15 mg/dL (6-20); CALCIUM 9.9 mg/dL (8.5-10.3); CARBON DIOXIDE - CO2 27 mmol/L (21-32); CHLORIDE 101 mmol/L (101-111); CK- CREATINE KINASE 60 IU/L (22-269); CREATININE 0.7 mg/dL (0.4-1.0); ETOH - ETHANOL < 5.0 mg/dL; GFR - MDRD 79 (>89); GLUCOSE 137 mg/dL (70-100); LIPASE 30 U/L (22-51); POTASSIUM 3.7 mmol/L (3.5-5.0); SODIUM 139 mmol/L (135-145); TOTAL PROTEIN 7.1 g/dL (6.7-8.2)
--- OUTSIDE RECORDS SUMMARY | 2022-02-22 09:35 | EXTERNAL MEDICAL SUMMARY RPT | Continuity of Care Document ---
:1930 Author Organization [facility] Address [address] [place] [address] Phone Allergies No information. Encounters No information. Functional Status No information. Immunizations No information. Medications date description facility [id number]+0000 gabapentin [facility] [place] [id number] trazodone [facility] [place] [id number]+0000 gabapentin [facility] [place] [id number]+0000 trazodone [facility] [place] Problems No information. Procedures date description facility +0000 Basic Metabolic Panel (BMP) Walk-In [facility] [id number]+0000 POC URINALYSIS DIP Walk-In [facility] [place] [id number]+0000 HGBA1C Walk[facility] [place] [id number]+0000 Physical Therapy Walk-In [facility] [id number]+0000 MICROALBUMIN/CREAT RATIO Walk-In [facility] Results/Labs No information. Social History date description facility +0000 Never smoker Walk-In [facility] [place] [id number] Never smoker Walk-In [facility] [place] Vital Signs date measurement value units [id number]+0000 BMI BMI 28.72 kg/m2 [id number]+0000 BP_diastolic BP_diastolic 73 mm[H g] [id number]+0000 BP_systolic BP_systolic 137 mm[Hg] [id number]+0000 heart_rate heart_rate 64 /min [id number]+0000 height_metric height_metric 159.26 cm [id number]+0000 height_standard height_standard 62.7 in [id number]+0000 respiration_rate respiration_rate 16 /min [id number]+0000 temperature_metric temperature_metric 36.44 C +0000 temperature_standard temperature_standard 9 7.6 F +0000 weight_metric weight_metric 72.57 kg +0000 weight_standard weight_standard 160 lb
--- NOTE | 2022-02-22 09:49 | XRAY Report ---
PROCEDURE: Chest 1 View X-Ray INDICATIONS: chest pain TECHNIQUE: One view of the chest was acquired. COMPARISON: 05/08/2021 FINDINGS: Surgical changes and devices: None. Lungs and pleura: No pleural effusions or pneumothorax. Stable prominence of the interstitial markin gs without focal consolidation. Mediastinum: Mediastinal contours appear normal. Heart size is normal. Bones and chest wall: Degenerative changes of the shoulders and spine. High right humeral heads whic h may represent chronic rotator cuff tearing. No suspicious bony lesions. Overlying soft tissues sowmya ear unremarkable. IMPRESSION: Stable interstitial prominence which may represent interstitial lung disease versus atypical infectio n or edema. Reviewed by: Chapito Zamora DO on 02/22/2022 8:48 AM CLARICE Approved by: Chapito Zamora DO on 02/22/2022 8:48 AM CLARICE Station ID: [id number]
--- NOTE | 2022-02-22 10:07 | CT Report ---
PROCEDURE: Abdomen/Pelvis WO INDICATIONS: RUQ/Flank pain TECHNIQUE: Noncontrast 5 mm thick sections acquired from the diaphragms to the symphysis. 5 mm coronal and sagi ttal reformats were then performed. For radiation dose reduction, the following was used: automated exposure control, adjustment of mA and/or kV according to patient size. COMPARISON: 01/29/2022 FINDINGS: Image quality: Excellent. ABDOMEN: Lung bases: Stable fibrotic changes of the lung bases with mild traction bronchiectasis. No focal con solidation or pneumothorax. Heart size is normal. Moderate coronary vascular calcifications. Solid organs: Liver and spleen are normal in size. Gallbladder is distended with a few radiopaque l ayering calcifications. No wall thickening or surrounding inflammation within limits of this exam. Co mmon bile duct within normal limits. Pancreas is normal in contours. No adrenal nodules. Kidneys a re normal in size without hydronephrosis. Punctate nonobstructing nephroliths within the interpolar r egion of the right kidney, unchanged. Ureters are normal in course and caliber. Peritoneum and bowel: Small hiatal hernia. Stomach and small bowel are otherwise unremarkable. Append ix is normal. Moderate stool burden. Scattered sigmoid colon diverticula without evidence of divertic ulitis. Nodes and vessels: No retroperitoneal or mesenteric adenopathy by size criteria. Aorta and inferior vena cava are normal in caliber. Diffuse vascular calcification. Miscellaneous: No ventral hernias. PELVIS: Genitourinary: Bladder wall thickness is normal. Status post hysterectomy. No suspicious adnexal ma ss. Miscellaneous: No inguinal hernias. A few prominent left inguinal lymph nodes the largest measuring 1.4 cm in short axis diameter. Bones: Marked osseous demineralization. Levoscoliotic curvature of the lumbar spine with marked degen erative changes. Postsurgical changes of the lumbar spine with posterior fusion of L4-L5. Grade 1 ant erolisthesis of L4 on L5 and L5 on S1. Mild retrolisthesis of L3 on L4. No vertebral body compression fractures. Degenerative changes of the hips which are at least moderate. IMPRESSION: No acute intra-abdominal/pelvic abnormality. Cholelithiasis. No CT evidence of cholecystitis. Nonobstructing punctate right nephrolith. No evidence of obstructing calcification or obstructive uro alex. Diverticulosis. Nonspecific prominent left inguinal lymph nodes. Small hiatal hernia. Moderate coronary vascular calcifications. Fibrotic changes of the lung bases. Reviewed by: Chapito Zamora DO on 02/22/2022 9:05 AM CLARICE Approved by: Chapito Zamora DO on 02/22/2022 9:05 AM CLARICE Station ID: [id number]
[2022-02-22 11:01] LABS: BILIRUBIN,URINE NEGATIVE (NEGATIVE); GLUCOSE, URINE (UA) NEGATIVE (NEGATIVE); KETONES,URINE (UA) NEGATIVE (NEGATIVE); LEUKOCYTE ESTERASE, URINE NEGATIVE (NEGATIVE); NITRITE,URINE NEGATIVE (NEGATIVE); OCCULT BLOOD,URINE NEGATIVE (NEGATIVE); PROTEIN,URINE NEGATIVE (NEGATIVE); UROBILINOGEN,URINE 0.2 (NORMAL) E.U./dL (NORMAL)
--- NOTE | 2022-02-22 11:09 | Ultrasound Report ---
PROCEDURE: Abdomen Limited INDICATIONS: RUQ pain, h/o Cholelithiasis TECHNIQUE: Real-time focused scanning was performed of the abdomen, with image documentation. COMPARISON: CT abdomen and pelvis dated 01/29/2022 FINDINGS: The liver demonstrates normal echogenicity measuring approximately 16.5 cm in length. No focal abnorm ality or intrahepatic ductal dilation. The gallbladder is distended measuring approximately 10.4 cm in diameter. There is multiple gallstone s. No wall thickening or pericholecystic fluid. Negative sonographic Montoya's sign reported by the te chnologist. The common bile duct measures 5.4 cm. Limited evaluation of the proximal pancreas is unremarkable. The right kidney is normal in size and echogenicity. No evidence of hydronephrosis. No calcifications noted on today's exam. IMPRESSION: Cholelithiasis without other findings to suggest acute cholecystitis. Reviewed by: Chapito Zamora DO on 02/22/2022 10:07 AM CLARICE Approved by: Chapito Zamora DO on 02/22/2022 10:07 AM CLARICE Station ID: [id number]
[2022-02-22 11:19] LABS: CLARITY,URINE CLEAR (CLEAR)
--- NOTE | 2022-02-22 13:22 | ED Physician Documentation ---
PD HPI ABD PAIN - Stated complaint Stated Complaint: R SIDE PAIN - Chief complaint Chief Complaint: Abd Pain - Additional information Additional information: Patient is 89-year-old female brought in by EMS for right-sided flank and abdominal pain. Reports history of cholelithiasis. Did have follow-up with surgery however stated that she canceled this appointment because she was feeling better. Pain began acutely this morning. Associated with nausea without vomiting. Similar to pain she has had in the past. Denies fever, chills, chest pain, diarrhea, constipation, new rash, new weakness/numbness/tingling in any extremity. Review of Systems Ten Systems: 10 systems reviewed and negative Constitutional: denies: Fever Eyes: denies: Loss of vision, Photophobia Nose: denies: Rhinorrhea / runny nose Throat: denies: Dental pain / toothache Cardiac: denies: Chest pain / pressure Respiratory: denies: Dyspnea GI: reports: Abdominal Pain, Nausea. denies: Vomiting : denies: Dysuria PD PAST MEDICAL HISTORY - Past Medical History Cardiovascular: Hypertension, High cholesterol, Pulmonary embolism, Atrial fibrillation, Arrhythmia Respiratory: None Neuro: Dementia, Migraines, Peripheral neuropathy Endocrine/Autoimmune: Type 2 diabetes GI: None BIT TAPPER: None : Incontinence, Frequency HEENT: Chronic vision loss, Chronic hearing loss, Dental implants, Other Psych: Depression Musculoskeletal: Osteoarthritis, Chronic back pain Derm: Rosacea, Other - Past Surgical History Past Surgical History: Yes General: Colonoscopy Ortho: Knee replacement, Spine surgery /BIT TAPPER: section, Hysterectomy, Oophrectomy HEENT: Cataracts, Detached retina repair - Present Medications Home Medications: Ambulatory Orders Medication Instructions Recorded Confirmed Digoxin [Lanoxin] 250 mcg PO DAILY 09/23/13 08/17/20 Metformin HCl [Metformin HCl ER] 500 mg PO BID 09/23/13 08/17/20 Multivitamin [Multi-Vitamin Daily] 1 each PO DAILY 09/23/13 08/17/20 Citalopram [CeleXA] 10 mg PO DAILY 02/10/14 08/17/20 Pravastatin Sodium 20 mg PO DAILY 07/02/14 08/17/20 Triamterene/Hydrochlorothiazid 1 tab PO DAILY 07/02/14 08/17/20 [Triamterene-Hctz 37.5-25 mg Cp] Acetaminophen 500 mg PO Q8HR 12/12/16 08/17/20 Donepezil HCl 10 mg PO DAILY 12/12/16 08/17/20 Rivaroxaban [Xarelto] 20 mg PO DAILY 12/12/16 08/17/20 Acetaminophen/Diphenhydramine 1 each PO QPM PRN 05/04/19 08/17/20 [Tylenol Pm Ex-Strength Caplet] Cyanocobalamin (Vitamin B-12) 6,000 mcg PO DAILY 05/04/19 08/17/20 [Vitamin B-12] HYDROcod/ACETAM 5/325 [May 5/325] 1 ea PO Q6H PRN #10 tablet 08/17/20 Promethazine [Phenergan] 25 mg PO Q6H PRN #10 tab 08/17/20 Cefdinir 300 mg PO BID #20 cap 01/29/22 HYDROcod/ACETAM 5/325 [May 5/325] 1 - 2 ea PO Q6H PRN #14 tablet 02/22/22 - Allergies Allergies/Adverse Reactions: Allergies Allergy/AdvReac Type Severity Reaction Status Date / Time codeine Allergy Itching, Verified 02/22/22 08:50 nausea kiwi Allergy Anaphylaxis Verified 02/22/22 08:50 oxycodone Allergy Unknown Verified 02/22/22 08:50 tramadol Allergy Unknown Verified 02/22/22 08:50 - Social History Does the pt smoke?: No Smoking Status: Never smoker Does the pt drink ETOH?: No Does the pt have substance abuse?: No - Immunizations Immunizations are current?: Yes - POLST Patient has POLST: No PD ED PE NORMAL - General General: Alert and oriented X 3 - HEENT HEENT: Atraumatic, PERRL, EOMI - Neck Neck: Supple, no meningeal sign, No bony TTP - Cardiac Cardiac: RRR - Respiratory Respiratory: No respiratory distress - Abdomen Abdomen: Normal bowel sounds, Soft, Non tender - Female Female : Deferred - Rectal Rectal: Deferred - Derm Derm: Normal color - Extremities Extremities: No deformity Results - Vitals Vitals: Vital Signs - 24 hr 02/22/22 02/22/22 08:45 11:19 Temperature 36.5 C 36.6 C Heart Rate 76 73 Respiratory 16 12 Rate Blood Pressure 153/87 H 127/81 H O2 Saturation 95 95 Oxygen O2 Source [With Activity] Room air O2 Source [Without Activity] Room air O2 Source Room air - Labs Labs: Laboratory Tests 02/22/22 02/22/22 02/22/22 09:01 09:01 09:01 WBC 6.9 RBC 4.98 Hgb 14.7 Hct 45.2 MCV 90.8 MCH 29.5 MCHC 32.5 RDW 14.3 Plt Count 243 MPV 10.2 Neut # (Auto) 5.7 Lymph # (Auto) 0.7 L [place] # (Auto) 0.3 Eos # (Auto) 0.0 Baso # (Auto) 0.1 Absolute Nucleated RBC 0.00 Nucleated RBC % 0.0 PT 21.7 H INR 1.9 H Sodium 139 Potassium 3.7 Chloride 101 Carbon Dioxide 27 Anion Gap 11.0 BUN 15 Creatinine 0.7 Estimated GFR (MDRD) 79 L Glucose 137 H Lactic Acid Calcium 9.9 Total Bilirubin 0.8 AST 23 ALT 18 Alkaline Phosphatase 77 Total Creatine Kinase 60 Troponin I High Sens Total Protein 7.1 Albumin 4.1 Globulin 3.0 Albumin/Globulin Ratio 1.4 Lipase 30 Urine Color Urine Clarity Urine pH Ur Specific [place] Urine Protein Urine Glucose (UA) Urine Ketones Urine Occult Blood Urine Nitrite Urine Bilirubin Urine Urobilinogen Ur Leukocyte Esterase Ur Microscopic Review Urine Culture Comments Ethyl Alcohol < 5.0 SARS-CoV-2 (PCR) 02/22/22 02/22/22 02/22/22 09:01 09:01 10:07 WBC RBC Hgb Hct MCV MCH MCHC RDW Plt Count MPV Neut # (Auto) Lymph # (Auto) [place] # (Auto) Eos # (Auto) Baso # (Auto) Absolute Nucleated RBC Nucleated RBC % PT INR Sodium Potassium Chloride Carbon Dioxide Anion Gap BUN Creatinine Estimated GFR (MDRD) Glucose Lactic Acid 1.7 Calcium Total Bilirubin AST ALT Alkaline Phosphatase Total Creatine Kinase Troponin I High Sens 9.1 Total Protein Albumin Globulin Albumin/Globulin Ratio Lipase Urine Color Urine Clarity Urine pH Ur Specific [place] Urine Protein Urine Glucose (UA) Urine Ketones Urine Occult Blood Urine Nitrite Urine Bilirubin Urine Urobilinogen Ur Leukocyte Esterase Ur Microscopic Review Urine Culture Comments Ethyl Alcohol SARS-CoV-2 (PCR) NOT DETECTED 02/22/22 10:39 WBC RBC Hgb Hct MCV MCH MCHC RDW Plt Count MPV Neut # (Auto) Lymph # (Auto) [place] # (Auto) Eos # (Auto) Baso # (Auto) Absolute Nucleated RBC Nucleated RBC % PT INR Sodium Potassium Chloride Carbon Dioxide Anion Gap BUN Creatinine Estimated GFR (MDRD) Glucose Lactic Acid Calcium Total Bilirubin AST ALT Alkaline Phosphatase Total Creatine Kinase Troponin I High Sens Total Protein Albumin Globulin Albumin/Globulin Ratio Lipase Urine Color YELLOW Urine Clarity CLEAR Urine pH 7.0 Ur Specific [place] 1.015 Urine Protein NEGATIVE Urine Glucose (UA) NEGATIVE Urine Ketones NEGATIVE Urine Occult Blood NEGATIVE Urine Nitrite NEGATIVE Urine Bilirubin NEGATIVE Urine Urobilinogen 0.2 (NORMAL) Ur Leukocyte Esterase NEGATIVE Ur Microscopic Review NOT INDICATED Urine Culture Comments NOT INDICATED Ethyl Alcohol SARS-CoV-2 (PCR) PD MEDICAL DECISION MAKING - ED course Complexity details: reviewed results, d/w patient ED course: Patient 89-year-old female with known history of cholelithiasis presenting with right upper quadrant and flank pain. Abdominal exam benign. Given medication for pain control with significant symptomatic improvement.Afebrile here. Labs obtained within normal meds are nonactionable. Ultrasonography with cholelithiasis without cholecystitis. Remainder of the patient's labs are unremarkable. Will discharge with instructions to follow-up with her surgeon.Otherwise clear return precautions and follow-up instructions given prior to discharge. Final clinical impression, symptomatic cholelithiasis. Departure - Departure Disposition: 01 Home, Self Care Clinical Impression: Cholelithiasis Instructions: Gallstones Dc Prescriptions: HYDROcod/ACETAM 5/325 [May 5/325] 1 - 2 ea PO Q6H PRN #14 tablet PRN Reason: Pain Comments: Thank you for allowing us to care for you today at [facility]. Prescription sent to [facility] in [place]. The ultrasound of your gallbladder showed gallstones without clear indication of inflammation around your gallbladder. The remainder of your tests were very reassuring. It is extremely important however that you follow-up with your surgeon and keep your follow-up appointment. I will be discharging you with some medications to help with your symptoms. Please use these as directed. If it anytime you have any new or worsening Pain please return to the emergency department.
[2022-02-22 13:30] VITALS: BP 121/77
== END 2022-02-22 14:04 | disposition home or self-care (01) ==
LOC: ED 08:43
DX: K80.20 Calculus of gallbladder without cholecystitis without obstruction (principal); I10 Essential (primary) hypertension; I48.91 Unspecified atrial fibrillation; E11.42 Type 2 diabetes mellitus with diabetic polyneuropathy; Z79.84 Long term (current) use of oral hypoglycemic drugs; Z20.822 Contact with and (suspected) exposure to COVID-19
CPT/HCPCS: 36415; 71045; 74176; 76705; 80053; 81003; 82550; 83605; 83690; 84484; 85025; 85610; 87635; 93005; 96361; 96374; 96375; 96376; 99283; 99284; G0480; 80320; 81001; 87086

== ENCOUNTER → 2022-02-22 | Outpatient (CLI) | payer MEDICARE, OTHER | END | disposition other institution (70) | LOC: EMS 08:26 | DX: R10.9 Unspecified abdominal pain (principal); K80.20 Calculus of gallbladder without cholecystitis without obstruction | CPT/HCPCS: A0425; A0429 ==

== ENCOUNTER 2022-02-28 03:55 | Outpatient (CLI) | payer MEDICARE, OTHER | END 2022-02-28 03:56 | disposition critical access hospital (66) | LOC: EMS 03:55 | DX: R10.31 Right lower quadrant pain (principal); R11.2 Nausea with vomiting, unspecified | CPT/HCPCS: A0425; A0427 ==

== ENCOUNTER 2022-02-28 04:14 | Emergency (ER) | payer MEDICARE, OTHER ==
--- OUTSIDE RECORDS SUMMARY | 2022-02-28 04:23 | EXTERNAL MEDICAL SUMMARY RPT | Continuity of Care Document ---
:1930 Author Organization [facility] Address [address] [place] [address] Phone Allergies No information. Encounters No information. Functional Status No information. Immunizations No information. Medications date description facility [id number] gabapentin Walk[facility] [place]ofi [id number]+0000 trazodone [facility] [place] [id number]+0000 gabapentin [facility] [place] [id number]+0000 trazodone [facility] [place] Problems No information. Procedures date description facility +0000 Basic Metabolic Panel (BMP) Walk-In [facility] [id number]+0000 POC URINALYSIS DIP Walk-In [facility] C turner [id number]+0000 HGBA1C Walk-In [facility] [place] turn[place] [id number]+0000 Physical Therapy Walk-In [facility] [id number]+0000 MICROALBUMIN/CREAT RATIO Walk-In [facility] Results/Labs No information. Social History date description facility +0000 Never smoker Walk-In [facility] [place] [id number]+0000 Never smoker Walk-[facility] [place] Vital Signs date measurement value units [id number]+0000 BMI BMI 28.72 kg/m2 [id number]+0000 BP_diastolic BP_diastolic 73 mm[H g] [id number]+0000 BP_systolic BP_systolic 137 mm[Hg] [id number]+0000 heart_rate heart_rate 64 /min [id number]+0000 height_metric height_metric 159.26 cm [id number]+0000 height_standard height_standard 62.7 in [id number]+0000 respiration_rate respiration_rate 16 /min [id number]+0000 temperature_metric temperature_metric 36.44 C +0000 temperature_standard temperature_standard 9 7.6 F +0000 weight_metric weight_metric 72.57 kg +0000 weight_standard weight_standard 160 lb
[2022-02-28 05:27] LABS: BASOPHILS % (AUTO) 0.6 %; EOSINOPHILS # (AUTO) 0.1 10^3/uL (0.0-0.7); HCT - HEMATOCRIT 40.8 % (37.0-47.0); HGB - HEMOGLOBIN 13.7 g/dL (12.0-16.0); LYMPHOCYTES # (AUTO) 0.8 10^3/uL (1.5-3.5); LYMPHOCYTES % (AUTO) 11.6 %; MEAN CORPUSCULAR HEMOGLOBIN 30.4 pg (27.0-31.0); MEAN CORPUSCULAR HGB CONC 33.6 g/dL (32.0-36.0); MEAN CORPUSCULAR VOLUME 90.7 fL (81.0-99.0); MEAN PLATELET VOLUME 10.3 fL (7.9-10.8); MONOCYTES # (AUTO) 0.5 10^3/uL (0.0-1.0); MONOCYTES % (AUTO) 6.9 %; NEUTROPHILS # (AUTO) 5.2 10^3/uL (1.5-6.6); NEUTROPHILS % (AUTO) 78.6 %; PLT - PLATELET COUNT 226 10^3/uL (130-450); RED CELL DISTRIBUTION WIDTH 14.4 % (12.0-15.0); WHITE BLOOD COUNT 6.6 x10^3/uL (4.8-10.8)
[2022-02-28 05:41] LABS: ALBUMIN 3.8 g/dL (3.2-5.5); ALBUMIN/GLOBULIN RATIO 1.5 (1.0-2.2); ALKALINE PHOSPHATASE 73 IU/L (42-121); ALT ALANINE AMINOTRANSFERASE 15 IU/L (10-60); AST ASPARTATE AMINOTRANSFERASE 27 IU/L (10-42); BILIRUBIN,TOTAL < 0.2 mg/dL (0.2-1.0); BUN - BLOOD UREA NITROGEN 20 mg/dL (6-20); CALCIUM 9.2 mg/dL (8.5-10.3); CARBON DIOXIDE - CO2 26 mmol/L (21-32); CHLORIDE 104 mmol/L (101-111); CREATININE 0.7 mg/dL (0.4-1.0); GFR - MDRD 79 (>89); GLUCOSE 131 mg/dL (70-100); LIPASE 31 U/L (22-51); POTASSIUM 3.7 mmol/L (3.5-5.0); SODIUM 141 mmol/L (135-145); TOTAL PROTEIN 6.4 g/dL (6.7-8.2)
[2022-02-28] MEDS ORDERED: fentaNYL 100 MCG/2 ML VIAL IVP STA ×2 (05:58→07:14)
[2022-02-28] MEDS ORDERED: diphenhydrAMINE INJ 50 MG/ML VIAL IVP STA (05:58)
--- NOTE | 2022-02-28 06:34 | ED Physician Documentation ---
PD HPI ABD PAIN - Stated complaint Stated Complaint: GALLBLADDER STONES/AB PX - Chief complaint Chief Complaint: Abd Pain - History obtained from History obtained from: Patient - Additional information Additional information: Patient is an 89-year-old female with a history of atrial fibrillation (on Eliquis) presenting for evaluation of right upper quadrant tenderness, nausea and vomiting that is worsened over the last 4 hours. The pain is sharp. It does radiate around to the back. Nothing makes it better or worse. She does have a history of gallstones And is scheduled for cholecystectomy at [facility] on March 03. She was seen about a week ago for similar symptoms and prescribed pain medication. She did try to take a dose of her pain medication tonight but vomited up. She does not have medications for nausea. She denies eating anything that would have triggered her symptoms this evening as she is careful to watch her diet as she is diabetic.She denies fever, chest pain or difficulty breathing. She denies diarrhea or dysuria.On route she was given morphine by EMS without significant improvement. Review of Systems Constitutional: denies: Fever Nose: denies: Congestion Cardiac: denies: Chest pain / pressure Respiratory: denies: Dyspnea, Cough GI: reports: Abdominal Pain, Nausea, Vomiting. denies: Diarrhea : denies: Dysuria Skin: denies: Rash Musculoskeletal: denies: Extremity pain Neurologic: denies: Headache, Head injury PD PAST MEDICAL HISTORY - Past Medical History Cardiovascular: Hypertension, High cholesterol, Pulmonary embolism, Atrial fibrillation, Arrhythmia Respiratory: None Neuro: Dementia, Migraines, Peripheral neuropathy Endocrine/Autoimmune: Type 2 diabetes GI: None TOBACCO CLASSER: None : Incontinence, Frequency HEENT: Chronic vision loss, Chronic hearing loss, Dental implants, Other Psych: Depression Musculoskeletal: Osteoarthritis, Chronic back pain Derm: Rosacea, Other - Past Surgical History Past Surgical History: Yes General: Colonoscopy Ortho: Knee replacement, Spine surgery /TOBACCO CLASSER: section, Hysterectomy, Oophrectomy HEENT: Cataracts, Detached retina repair - Present Medications Home Medications: Ambulatory Orders Medication Instructions Recorded Confirmed Digoxin [Lanoxin] 250 mcg PO DAILY 09/23/13 08/17/20 Metformin HCl [Metformin HCl ER] 500 mg PO BID 09/23/13 08/17/20 Multivitamin [Multi-Vitamin Daily] 1 each PO DAILY 09/23/13 08/17/20 Citalopram [CeleXA] 10 mg PO DAILY 02/10/14 08/17/20 Pravastatin Sodium 20 mg PO DAILY 07/02/14 08/17/20 Triamterene/Hydrochlorothiazid 1 tab PO DAILY 07/02/14 08/17/20 [Triamterene-Hctz 37.5-25 mg Cp] Acetaminophen 500 mg PO Q8HR 12/12/16 08/17/20 Donepezil HCl 10 mg PO DAILY 12/12/16 08/17/20 Rivaroxaban [Xarelto] 20 mg PO DAILY 12/12/16 08/17/20 Acetaminophen/Diphenhydramine 1 each PO QPM PRN 05/04/19 08/17/20 [Tylenol Pm Ex-Strength Caplet] Cyanocobalamin (Vitamin B-12) 6,000 mcg PO DAILY 05/04/19 08/17/20 [Vitamin B-12] HYDROcod/ACETAM 5/325 [[place] 5/325] 1 ea PO Q6H PRN #10 tablet 08/17/20 Promethazine [Phenergan] 25 mg PO Q6H PRN #10 tab 08/17/20 Cefdinir 300 mg PO BID #20 cap 01/29/22 HYDROcod/ACETAM 5/325 [[place] 5/325] 1 - 2 ea PO Q6H PRN #14 tablet 02/22/22 HYDROcod/ACETAM 5/325 [[place] 5/325] 1 - 2 ea PO Q6H PRN #14 tablet 02/28/22 Ondansetron Odt [Zofran] 4 mg TL Q6H PRN #10 tablet 02/28/22 - Allergies Allergies/Adverse Reactions: Allergies Allergy/AdvReac Type Severity Reaction Status Date / Time codeine Allergy Itching, Verified 02/28/22 04:18 nausea kiwi Allergy Anaphylaxis Verified 02/28/22 04:18 oxycodone Allergy Unknown Verified 02/28/22 04:18 tramadol Allergy Unknown Verified 02/28/22 04:18 - Social History Does the pt smoke?: No Smoking Status: Never smoker Does the pt drink ETOH?: No Does the pt have substance abuse?: No - Immunizations Immunizations are current?: Yes - POLST Patient has POLST: No PD ED PE NORMAL - General General: Alert and oriented X 3, No acute distress, Well developed/nourished - HEENT HEENT: Atraumatic, Moist mucous membranes - Neck Neck: Supple, no meningeal sign - Cardiac Cardiac: No murmur, Strong equal pulses, Other (Irregularly irregular, normal rate) - Abdomen Abdomen: Normal bowel sounds, Soft, Non distended, Other (Epigastric and right upper quadrant tenderness to palpation,) - Derm Derm: Warm and dry - Extremities Extremities: No edema - Neuro Neuro: Normal speech Results - Vitals Vitals: Vital Signs - 24 hr 02/28/22 02/28/22 02/28/22 04:18 04:23 06:23 Temperature 36.5 C Heart Rate 80 81 74 Respiratory 16 16 12 Rate Blood Pressure 119/70 116/76 119/82 H O2 Saturation 96 99 97 02/28/22 02/28/22 02/28/22 08:04 10:22 12:33 Temperature Heart Rate 72 91 64 Respiratory 20 15 16 Rate Blood Pressure 172/73 H 155/95 H 122/66 O2 Saturation 98 95 100 Oxygen O2 Source [] Room air O2 Source [] Room air O2 Source Room air - EKG (time done) 0534 Rate: Rate (enter#) (69) Rhythm: Atrial fibrillation Ischemia: No: ST elevation c/w ischemia - Labs Labs: Laboratory Tests 02/28/22 02/28/22 05:22 05:22 WBC 6.6 RBC 4.50 Hgb 13.7 Hct 40.8 MCV 90.7 MCH 30.4 MCHC 33.6 RDW 14.4 Plt Count 226 MPV 10.3 Neut # (Auto) 5.2 Lymph # (Auto) 0.8 L [place] # (Auto) 0.5 Eos # (Auto) 0.1 Baso # (Auto) 0.0 Absolute Nucleated RBC 0.00 Nucleated RBC % 0.0 Sodium 141 Potassium 3.7 Chloride 104 Carbon Dioxide 26 Anion Gap 11.0 BUN 20 Creatinine 0.7 Estimated GFR (MDRD) 79 L Glucose 131 H Calcium 9.2 Total Bilirubin < 0.2 L AST 27 ALT 15 Alkaline Phosphatase 73 Total Protein 6.4 L Albumin 3.8 Globulin 2.6 Albumin/Globulin Ratio 1.5 Lipase 31 PD MEDICAL DECISION MAKING - ED course Complexity details: reviewed results, re-evaluated patient, d/w patient ED course: Patient presenting with right upper quadrant pain and vomiting. Has known gallstones. Vital signs are reassuring and labs without significant abnormalities. CT scan was obtained with mild gallbladder distention. Ultrasound is pending. Patient signed out to a.m. ED physician to follow-up on ultrasound. Patient did feel itching after morphing but did tolerate fentanyl with no problem. Pain has been better controlled. Departure - Departure Disposition: 01 Home, Self Care Clinical Impression: Cholelithiasis Condition: Good Instructions: ED Gallstone W Biliary Colic Follow-Up: your,doctor in 1 week [Other] Prescriptions: HYDROcod/ACETAM 5/325 [[place] 5/325] 1 - 2 ea PO Q6H PRN #14 tablet PRN Reason: Pain Ondansetron Odt [Zofran] 4 mg TL Q6H PRN #10 tablet PRN Reason: Nausea / Vomiting Comments: Please follow-up with your doctor on Wednesday as scheduled for your cholecystectomy. Please return if you worsen including worsening pain, vomiting or fevers. Your prescriptions were sent to [facility] in [place]. I am prescribing a short course of narcotic pain medication for you. These are potentially dangerous and addictive medications that should be used carefully. These medications may constipate you. Take an opwq-bse-ovgyuwb stool softener (docusate) twice daily with plenty of water while taking these medications. If you go 24 hours without a bowel movement, take [id number] miralax, per package instructions. Do not drink or drive while taking these medications. If you received narcotic or sedating medications while in the emergency department, do not drive for 24 hours. Store this medication in a safe, secure place and out of reach of children. It is a violation of federal law to give or sell this medication to another person or to use in a manner other than prescribed. The ED will not refill narcotic prescriptions, including prescriptions lost or stolen. To dispose of unwanted medications: 1. [facility] at [address] in [place] has a medication drop box. They accept prescription medications (in pill form) Wednesday through Wednesday 9:00 a.m. to 5:00 p.m. 2. [facility] [employer] accepts prescription medications (in pill form only) for disposal year round. Call for more information. 3. Contact the [facility] for the next [facility] sponsored prescription drug collection event. , [phone], or [phone]; Discharge Date/Time: 02/28/22 12:35
--- NOTE | 2022-02-28 09:14 | CT Report ---
PROCEDURE: Abdomen/Pelvis WO INDICATIONS: RUQ pain TECHNIQUE: Noncontrast 5 mm thick sections acquired from the diaphragms to the symphysis. 5 mm coronal and sagi ttal reformats were then performed. For radiation dose reduction, the following was used: automated exposure control, adjustment of mA and/or kV according to patient size. COMPARISON: None. FINDINGS: Image quality: Excellent. ABDOMEN: Lung bases: Mild fibrotic changes in the lung bases. Heart size is normal. The coronary arteries lazcano ve atherosclerotic calcifications. Solid organs: Liver and spleen are normal in size. Gallbladder has calcified gallstones layering. P ancreas is normal in contours. No adrenal nodules. Kidneys are normal in size, without hydronephros is or nephrolithiasis. 3 mm nonobstructing calculus in the upper pole of the right kidney. No obstru ctive uropathy. Peritoneum and bowel: Small sliding hiatal hernia. Moderate amount of colonic stool present. Scatter ed sigmoid colon diverticulosis present. The appendix is seen and is normal. Unenhanced bowel loops d emonstrate normal wall thickness and caliber. No free fluid or air. Nodes and vessels: No retroperitoneal or mesenteric adenopathy by size criteria. Aorta and inferior vena cava are normal in caliber. Miscellaneous: No ventral hernias. PELVIS: Genitourinary: Bladder wall thickness is normal. Miscellaneous: No inguinal hernias or adenopathy. Bones: Fusion hardware is noted posteriorly at L4-5. There is grade 1 anterolisthesis of L4 on L5 an d L5 on S1. There is levoconvex scoliosis of the lumbar spine. Atherosclerotic aortoiliac calcificati ons are present. A 2 cm left inguinal region lymph node is again noted. No suspicious bony lesions. No vertebral body compression fractures. IMPRESSION: 1. Cholelithiasis and mild gallbladder distention. Recommend ultrasound for better characterization. 2. Nonobstructing right-sided nephrolithiasis. 3. Other incidental findings as above. Reviewed by: Danyel Becker on 02/28/2022 8:12 AM CLARICE Approved by: Danyel Becker on 02/28/2022 8:12 AM CLARICE Station ID: [id number]
[2022-02-28] MEDS ORDERED: HYDROcod/ACETAM 5/325 MG TABLET PO STA (10:09)
--- NOTE | 2022-02-28 12:03 | Ultrasound Report ---
PROCEDURE: Abdomen Limited INDICATIONS: RUQ pain/gallstones TECHNIQUE: Real-time focused scanning was performed of the abdomen, with image documentation. COMPARISON: None FINDINGS: Liver: The liver has a normal size measuring 15.2 cm. Echotexture is increased consistent with hepati c steatosis. Gallbladder: Multiple mobile stones are seen with the gallbladder wall measuring 3.2 mm, slightly abo ve upper limits. Biliary tree: No intrahepatic biliary ductal dilatation. The common bile duct measures 4.3 mm. Pancreas: The pancreas is not well visualized due to overlying bowel gas. Right kidney: The right kidney has a normal size. There is no hydronephrosis or calculus. IMPRESSION: Cholelithiasis with mild gallbladder wall thickening. Findings are critical for early ch olecystitis. Please correlate clinically. Reviewed by: Danyel Becker on 02/28/2022 11:02 AM CLARICE Approved by: Danyel Becker on 02/28/2022 11:02 AM CLARICE Station ID: [id number]
--- NOTE | 2022-02-28 12:12 | ED Physician Documentation ---
ED Addendum - Addendum Addendum: 02/28/22 12:09 Patient was signed out to me awaiting ultrasound of the right upper quadrant for possible cholecystitis. The ultrasound does show mild gallbladder wall thickening, but no pericholecystic fluid and a negative Montoya sign. Pain well controlled in the emergency department. Not vomiting. No leukocytosis. Patient would like to try going home to see how she progresses until her surgery on Wednesday. She will return for worsening symptoms including increasing pain, fevers or vomiting. Patient counseled regarding signs and symptoms for which I believe and urgent re-evaluation would be necessary. Patient with good understanding of and agreement to plan and is comfortable going home at this time This document was made in part using voice recognition software. While efforts are made to proofread this document, sound alike and grammatical errors may occur. Departure - Departure Disposition: Home, Self Care Clinical Impression: Cholelithiasis Qualifiers: Cholelithiasis location: gallbladder Cholecystitis presence: without cholecystitis Biliary obstruction: without biliary obstruction Qualified Code(s): K80.20 - Calculus of gallbladder without cholecystitis without obstruction Condition: Good Instructions: ED Gallstone W Biliary Colic Follow-Up: your,doctor in 1 week [Other] Prescriptions: HYDROcod/ACETAM 5/325 [[place] 5/325] 1 - 2 ea PO Q6H PRN #14 tablet PRN Reason: Pain Ondansetron Odt [Zofran] 4 mg TL Q6H PRN #10 tablet PRN Reason: Nausea / Vomiting Comments: Please follow-up with your doctor on Wednesday as scheduled for your cholecystectomy. Please return if you worsen including worsening pain, vomiting or fevers. Your prescriptions were sent to [facility] in [place]. I am prescribing a short course of narcotic pain medication for you. These are potentially dangerous and addictive medications that should be used carefully. These medications may constipate you. Take an nhlc-amp-dlqwhig stool softener (docusate) twice daily with plenty of water while taking these medications. If you go 24 hours without a bowel movement, take zpez-sct-kvzwguk miralax, per package instructions. Do not drink or drive while taking these medications. If you received narcotic or sedating medications while in the emergency department, do not drive for 24 hours. Store this medication in a safe, secure place and out of reach of children. It is a violation of federal law to give or sell this medication to another person or to use in a manner other than prescribed. The ED will not refill narcotic prescriptions, including prescriptions lost or stolen. To dispose of unwanted medications: 1. [facility] at [address] in [place] has a medication drop box. They accept prescription medications (in pill form) Wednesday through Wednesday 9:00 a.m. to 5:00 p.m. 2. [facility] accepts prescription medications (in pill form only) for disposal year round. Call for more information. 3. Contact the [facility] for the next [facility] sponsored prescription drug collection event. , [phone], or [phone];
[2022-02-28 12:33] VITALS: BP 122/66
== END 2022-02-28 12:35 | disposition home or self-care (01) ==
LOC: EDUNIT# → ED 04:14
DX: K80.20 Calculus of gallbladder without cholecystitis without obstruction (principal); I48.91 Unspecified atrial fibrillation; Z79.01 Long term (current) use of anticoagulants
CPT/HCPCS: 36415; 74176; 76705; 80053; 83690; 85025; 93005; 96374; 96375; 96376; 99284; A9270; J1200

== ENCOUNTER 2022-02-28 06:54 | Outpatient (CLI) | payer MEDICARE, OTHER | END 2022-02-28 06:55 | disposition home or self-care (01) | LOC: LAB 06:54 | PROVIDERS: ATTEND Surgery | DX: Z01.812 Encounter for preprocedural laboratory examination (principal); Z20.822 Contact with and (suspected) exposure to COVID-19 ==

== ENCOUNTER 2022-03-21 08:00 | Outpatient (CLI) | payer MEDICARE, OTHER | END 2022-03-21 23:59 | disposition home or self-care (01) | LOC: LAB.S 08:00 | PROVIDERS: ATTEND Physician Assistant | DX: N39.0 Urinary tract infection, site not specified (principal) | CPT/HCPCS: 87086 ==

== ENCOUNTER 2022-04-25 10:23 | Emergency (ER) | payer MEDICARE, OTHER ==
[2022-04-25 10:30] VITALS: BP 133/84
[2022-04-25] MEDS ORDERED: HYDROcod/ACETAM 5/325 MG TABLET PO STA (10:44)
--- NOTE | 2022-04-25 10:46 | ED Physician Documentation ---
PD HPI UPPER EXT INJURY - Stated complaint Stated Complaint: LT KNEE PX - Chief complaint Chief Complaint: Ext Problem - History obtained from History obtained from: Patient - Additonal information Additional information: 89-year-old woman with history of known knee osteoarthritis. She had her right knee replaced about 13 years ago and has intermittent problems with the left knee. That said she does not have chronic pain there. She thinks she overdid it 2 days ago [facility] and doing too many stairs and getting in and out of the car to many times now has severe pain in the anterior part of the left knee. There was no specific injury. No fevers. She has an orthopedist in [place], Dr. Pepe who has given her what sounds like Synvisc injections in the past. Review of Systems Constitutional: reports: Reviewed and negative Nose: reports: Reviewed and negative Cardiac: reports: Reviewed and negative Respiratory: reports: Reviewed and negative PD PAST MEDICAL HISTORY - Past Medical History Past Medical History: No Cardiovascular: Hypertension, High cholesterol, Pulmonary embolism, Atrial fibrillation, Arrhythmia Respiratory: None Neuro: Dementia, Migraines, Peripheral neuropathy Endocrine/Autoimmune: Type 2 diabetes GI: None [employer]IPPING [employer] RECEIVING SPECIALIST: None : Incontinence, Frequency HEENT: Chronic vision loss, Chronic hearing loss, Dental implants, Other Psych: Depression Musculoskeletal: Osteoarthritis, Chronic back pain Derm: Rosacea, Other - Past Surgical History Past Surgical History: Yes General: Colonoscopy Ortho: Knee replacement, Spine surgery /SHIPPING AND RECEIVING SPECIALIST: section, Hysterectomy, Oophrectomy HEENT: Cataracts, Detached retina repair - Present Medications Home Medications: Ambulatory Orders Medication Instructions Recorded Confirmed Digoxin [Lanoxin] 250 mcg PO DAILY 09/23/13 08/17/20 Metformin HCl [Metformin HCl ER] 500 mg PO BID 09/23/13 08/17/20 Multivitamin [Multi-Vitamin Daily] 1 each PO DAILY 09/23/13 08/17/20 Citalopram [CeleXA] 10 mg PO DAILY 02/10/14 08/17/20 Pravastatin Sodium 20 mg PO DAILY 07/02/14 08/17/20 Triamterene/Hydrochlorothiazid 1 tab PO DAILY 07/02/14 08/17/20 [Triamterene-Hctz 37.5-25 mg Cp] Acetaminophen 500 mg PO Q8HR 12/12/16 08/17/20 Donepezil HCl 10 mg PO DAILY 12/12/16 08/17/20 Rivaroxaban [Xarelto] 20 mg PO DAILY 12/12/16 08/17/20 Acetaminophen/Diphenhydramine 1 each PO QPM PRN 05/04/19 08/17/20 [Tylenol Pm Ex-Strength Caplet] Cyanocobalamin (Vitamin B-12) 6,000 mcg PO DAILY 05/04/19 08/17/20 [Vitamin B-12] HYDROcod/ACETAM 5/325 [[place] 5/325] 1 ea PO Q6H PRN #10 tablet 08/17/20 Promethazine [Phenergan] 25 mg PO Q6H PRN #10 tab 08/17/20 Cefdinir 300 mg PO BID #20 cap 01/29/22 HYDROcod/ACETAM 5/325 [[place] 5/325] 1 - 2 ea PO Q6H PRN #14 tablet 02/22/22 HYDROcod/ACETAM 5/325 [[place] 5/325] 1 - 2 ea PO Q6H PRN #14 tablet 02/28/22 Ondansetron Odt [Zofran] 4 mg TL Q6H PRN #10 tablet 02/28/22 - Allergies Allergies/Adverse Reactions: Allergies Allergy/AdvReac Type Severity Reaction Status Date / Time codeine Allergy Itching, Verified 04/25/22 10:31 nausea kiwi Allergy Anaphylaxis Verified 04/25/22 10:31 oxycodone Allergy Unknown Verified 04/25/22 10:31 tramadol Allergy Unknown Verified 04/25/22 10:31 - Social History Does the pt smoke?: No Smoking Status: Never smoker Does the pt drink ETOH?: No Does the pt have substance abuse?: No - Immunizations Immunizations are current?: Yes - POLST Patient has POLST: No PD ED PE NORMAL - Vitals Vital signs reviewed: Yes - General General: Alert and oriented X 3, No acute distress - Derm Derm: Normal color, Warm and dry - Extremities Extremities: Other (There is potentially a very small effusion of the left knee, tender over the anterior joint line especially the tibial plateau. No medial or lateral tenderness. Ligamentous testing is intact. No warmth or redness.) - Neuro Neuro: Alert and oriented X 3, Normal speech Results - Vitals Vitals: Vital Signs - 24 hr 04/25/22 10:27 Temperature 36.8 C Heart Rate 100 Respiratory 16 Rate Blood Pressure 133/84 H O2 Saturation 99 Oxygen O2 Source [With Activity] Room air O2 Source [Without Activity] Room air O2 Source Room air Procedures - General procedure General procedure: After verbal informed consent the medial side of the left knee was prepped and draped and a total of 6 mL of 0.5% Marcaine was instilled via medial approach into the left knee joint and the patient tolerated this well. PD MEDICAL DECISION MAKING - ED course ED course: 89-year-old woman presents with severe knee pain and known bad degenerative arthritis of that knee. 4 view x-ray of the right knee shows severe osteoarthritis progressive from the last x-ray done in 2018. She felt much better after hydrocodone here but declined prescription wanting to stick with Tylenol at home. We discussed the potential for putting some local anesthetic in the joint and she would like to go ahead with that. Departure - Departure Disposition: 01 Home, Self Care Clinical Impression: Left knee DJD Qualifiers: Osteoarthritis type: primary Qualified Code(s): M17.12 - Unilateral primary osteoarthritis, left knee Condition: Good Record reviewed to determine appropriate education?: Yes Instructions: Osteoarthritis Common Sites Comments: You have severe degenerative arthritis of the left knee. Follow-up with Dr. Pepe. In the interim take Tylenol per package instructions for pain. Return if worse.
--- NOTE | 2022-04-25 11:22 | XRAY Report ---
PROCEDURE: Knee 4 View LT INDICATIONS: knee pain TECHNIQUE: 4 views of the left knee(s) were acquired. COMPARISON: 12/22/17 FINDINGS: Bones: There is moderate to severe medial femorotibial joint space narrowing, with associated degene rative change with subchondral sclerosis and osteophyte formation. On the sunrise view, there is mode rate to severe patellofemoral joint space narrowing, with associated remodeling changes, including sp urs along the margins of the patella. No fractures or dislocations can be seen. No suspicious lytic or blastic lesions are seen. Soft tissues: There is mild joint effusion. No suspicious soft tissue calcifications. IMPRESSION: Relatively prominent left knee joint degenerative change can be seen, which is worst inv olving the medial femoral tibial compartment. The degenerative changes are progressed compared to 2018. If it would be helpful for clinical management decision making, please consider a dedicated, schedule d knee MRI for further evaluation (assuming that there is no contraindication). Reviewed by: Crispin Donovan MD on 04/25/2022 10:21 AM CLARICE Approved by: Crispin Donovan MD on 04/25/2022 10:21 AM CLARICE Station ID: [id number]
[2022-04-25] MEDS ORDERED: BUPIVACAINE 0.25% PF 30 ML VIAL SUBQ STA (11:27)
[2022-04-25] MEDS ORDERED: BUPIVACAINE 0.5%-EPI 1:200000 PF 30 ML VIAL SUBQ ONE (11:31)
[2022-04-25] MEDS ORDERED: BUPIVACAINE 0.5% PF 30 ML VIAL ONE (11:45)
== END 2022-04-25 11:57 | disposition home or self-care (01) ==
LOC: ED 10:23
DX: M17.12 Unilateral primary osteoarthritis, left knee (principal); I10 Essential (primary) hypertension; I48.91 Unspecified atrial fibrillation; E11.21 Type 2 diabetes mellitus with diabetic nephropathy; Z79.84 Long term (current) use of oral hypoglycemic drugs
CPT/HCPCS: 20610; 73564; 99283; A9270